=== PATIENT | male | born 1960 | race Caucasian/White ===

== ENCOUNTER 2020-06-13 10:00 | Day surgery (SDC) | payer MEDICARE, MEDICAID, SELFPAY ==
[2020-06-08 11:30] VITALS: BMI 29.7
--- NOTE | 2020-06-09 08:32 | HO.ANESPROP2 ---
Documented by User: Radha Monteiro 06/09/20 08:33 HPI - Anesthesia Eval Consult details Narrative: 59yo M for EGD PMFSH Past Medical History Medical History Anxiety Asthma Barretts esophagus Depression Environmental allergies GERD (gastroesophageal reflux disease) Post traumatic stress disorder (PTSD) Seasonal allergies Surgical History Surgical History Hx of colonoscopy Hx of esophagogastroduodenoscopy Hx of tonsillectomy Social History Social History Smoking Status: Former smoker Smoking Quit Date: 2014 Advance Directives: No Advance Directives Information Provided: No Advance Directives on File: No Meds Allergies Allergy/AdvReac Type Severity Reaction Status Date / Time nut - unspecified [NUTS] Allergy Unknown WHEEZES Verified 06/13/20 11:37 DAIRY PRODUCTS Allergy Unknown WHEEZES Uncoded 06/13/20 11:37 SEASONAL ALLERGIES Allergy Unknown DIFFICULTY Uncoded 05/26/20 14:42 BREATHING Home Medications Medication Instructions Recorded Confirmed Type escitalopram oxalate 1 tab PO DAILY 06/08/20 06/08/20 History fluticasone propion-salmeterol 1 inh INHALATION BID 06/08/20 06/10/20 History [Advair Diskus] lorazepam 1 tab PO DAILY PRN 06/08/20 06/08/20 History omeprazole 1 cap PO QAM 06/08/20 06/08/20 History oxcarbazepine PO 06/08/20 History risperidone 2 tab PO BEDTIME 06/08/20 06/08/20 History zolpidem 1 tab PO BEDTIME PRN 06/08/20 06/08/20 History escitalopram oxalate 10 mg PO DAILY 06/10/20 06/10/20 History Exam Exam Date and Time: June 09, 2020 0832 Height,Weight and Vital Signs: Height 6 ft 2.5 in Weight 106.594 kg Assessment and Plan Assessment Anesthesia Assessment: Chart Reviewed Documented by User: Judith Galvan 06/13/20 11:56 PMFSH Past Medical History Medical History Anxiety Asthma Barretts esophagus Depression Environmental allergies GERD (gastroesophageal reflux disease) Post traumatic stress disorder (PTSD) Seasonal allergies Surgical History Surgical History Hx of colonoscopy Hx of esophagogastroduodenoscopy Hx of tonsillectomy Social History Social History Smoking Status: Former smoker Smoking Quit Date: 2014 Advance Directives: No Advance Directives Information Provided: No Advance Directives on File: No Meds Allergies Allergy/AdvReac Type Severity Reaction Status Date / Time nut - unspecified [NUTS] Allergy Unknown WHEEZES Verified 06/13/20 11:37 DAIRY PRODUCTS Allergy Unknown WHEEZES Uncoded 06/13/20 11:37 SEASONAL ALLERGIES Allergy Unknown DIFFICULTY Uncoded 05/26/20 14:42 BREATHING Home Medications Medication Instructions Recorded Confirmed Type escitalopram oxalate 1 tab PO DAILY 06/08/20 06/08/20 History fluticasone propion-salmeterol 1 inh INHALATION BID 06/08/20 06/10/20 History [Advair Diskus] lorazepam 1 tab PO DAILY PRN 06/08/20 06/08/20 History omeprazole 1 cap PO QAM 06/08/20 06/08/20 History oxcarbazepine PO 06/08/20 History risperidone 2 tab PO BEDTIME 06/08/20 06/08/20 History zolpidem 1 tab PO BEDTIME PRN 06/08/20 06/08/20 History escitalopram oxalate 10 mg PO DAILY 06/10/20 06/10/20 History Exam Airway Mallampati Class: II TM Dist: >3cm Neck ROM: Full Heart: RrR Lungs: wheezes BL Other: up draft ordered Assessment and Plan Assessment Anesthesia Assessment: Anesthesia Plan Discussed, Consent Obtained and Chart Reviewed Final Anesthetic Review NPO: Yes ASA Class: III Final Preanesthetic Review: No Changes in Pt Med Stat, Meds & Allergies Reviewed and Consent Obtained/Reviewed Patient Risk: Intermediate Procedure Risk: Low Anesthetic Plan Anesthetic Plan: MAC: Disposition: Standard PACU
[2020-06-13 11:47] VITALS: BP 153/98; PULSE 79; RESP 16; TEMP 36.8; O2SAT 99
[2020-06-13] MEDS: Lactated Ringers 1,000 ML 100 ML IVCONT (11:53)
[2020-06-13] MEDS: Albuterol Sulfate (0.083%) 2.5 MG/3 ML VIAL.NEB INHALE (12:08)
[2020-06-13 12:51] VITALS: BP 119/70; PULSE 75; RESP 16; TEMP 36.4; O2SAT 100
[2020-06-13 12:56] VITALS: BP 123/68; PULSE 70; RESP 14; O2SAT 100
[2020-06-13 13:01] VITALS: BP 129/72; PULSE 66; RESP 16; O2SAT 100
[2020-06-13 13:06] VITALS: BP 137/77; PULSE 63; RESP 16; O2SAT 100
--- NOTE | 2020-06-13 13:20 | OP_ITS ---
SURGEON: Cristino Quintero MD INDICATIONS: The patient presents for evaluation of gastroesophageal reflux and Jacob's esophagus. Full consent has been obtained from him for this, including risks of bleeding and perforation. PREOPERATIVE DIAGNOSIS: POSTOPERATIVE DIAGNOSIS: PROCEDURE PERFORMED: Esophagogastroduodenoscopy with biopsies. ESTIMATED BLOOD LOSS: COMPLICATIONS: ANESTHESIA: Monitored anesthesia care. ASSISTANTS: SPECIMENS: PREOPERATIVE DIAGNOSES: Gastroesophageal reflux and Jacob's esophagus. POSTOPERATIVE DIAGNOSES: Gastroesophageal reflux and Jacob's esophagus, esophagitis, hiatal hernia. DESCRIPTION OF PROCEDURE: The patient was placed in the left lateral decubitus position. The Olympus video gastroscope was passed in the posterior oropharynx and upper esophagus under direct vision. The scope was passed slowly to the distal esophagus. The gastroesophageal junction appeared at 35 cm. Extending from this to approximately 29 cm, was what appeared to be a circumferential segment of Jacob's mucosa. There was some esophagitis just above the EG junction at 35 cm and at the squamocolumnar junction at 29 cm. There was no mass nor ulceration. There was no stricture. The scope was entered into the stomach. There was a moderate to large hiatal hernia with the diaphragmatic indentation seen at approximately 40 cm. The hiatal hernia mucosa appeared normal. The scope was advanced to pylorus and duodenum cannulated the descending portion. The duodenum including the bulb appeared normal without mass or ulceration. The scope was withdrawn back in the stomach. The gastric antrum and body appeared normal with good peristalsis. The scope was retroflexed visualizing the proximal stomach carefully, which appeared normal, without any sign of mass or ulceration. The scope was straightened and withdrawn back into the esophagus. Multiple biopsies were obtained just above the EG junction at 35 cm, at 33 cm, at 31 cm, and at 29 cm. Proximal to 29 cm, the esophageal mucosa appeared normal. The scope was then withdrawn from the patient. He tolerated the procedure well and was returned to recovery area in stable condition. IMPRESSION: 1. Erosive esophagitis. 2. Large hiatal hernia. 3. Jacob's esophagus. PLAN: The results of the biopsy will be checked. Assuming there is no dysplasia, I would recommend a repeat upper endoscopy within 3 years. He does have a prescription for omeprazole at home, but has not been using it because he reports that he does not have any particular symptoms of reflux. However, I did give him instructions to use it daily even if he is not having symptoms of reflux given today's endoscopic findings. He is due for a colonoscopy in 1 year. At that point, we may want to repeat his upper endoscopy as well to reassess the esophagitis. He was advised not to use any aspirin and NSAIDs for 1 week. MD KYLE Fall/WERNER / [id number]
--- NOTE | 2020-06-13 13:51 | HO.POSTANES ---
Post Anesthesia Evaluation Post Anesthesia Evaluation Vital Signs: Vital Signs Temp Pulse Resp BP Pulse Ox 06/13/20 13:06 63 16 137/77 100 06/13/20 13:01 66 16 129/72 100 06/13/20 12:56 70 14 123/68 100 06/13/20 12:51 97.6 F 75 16 119/70 100 06/13/20 11:47 98.3 F 79 16 153/98 H 99 Anesthesia: Monitored Mental Status: Awake Pain Control: Satisfactory Nausea/Vomiting: None Hydration: Adequate Anesthesia-Related Issues: No Anes. Related Issues
== END 2020-06-13 14:00 | disposition home or self-care (01) ==
PROVIDERS: PCP Physician Assistant Medical; Visit Provider Internal Medicine
PROC: 0DJ08ZZ Inspection of Upper Intestinal Tract, Via Natural or Artificial Opening Endoscopic (ICD-10-PCS; CPT 43235; principal; 2020-06-13 12:10)
DX: K22.70 Barrett's esophagus without dysplasia (principal); K21.00 Gastro-esophageal reflux disease with esophagitis, without bleeding; K44.9 Diaphragmatic hernia without obstruction or gangrene; J45.909 Unspecified asthma, uncomplicated; F43.10 Post-traumatic stress disorder, unspecified; Z87.891 Personal history of nicotine dependence; Z79.51 Long term (current) use of inhaled steroids; Z79.899 Other long term (current) drug therapy
CPT/HCPCS: 43239; 88305; 94640

== ENCOUNTER 2020-07-18 12:56 | Outpatient (REF) | payer MEDICARE, MEDICAID, SELFPAY ==
[2020-07-18 14:48] LABS: MANUAL DIFF FLAG NO
[2020-07-18 14:57] LABS: Basophils Absolute Auto 0.1 X10*3/uL (0.0-0.2); Basophils Percent Auto 0.8 % (0-2); Eosinophils Absolute Auto 0.3 X10*3/uL (0.0-0.4); Eosinophils Percent Auto 4.3 % (0-4); Hematocrit 44.4 % (42-52); Hemoglobin 15.5 g/dl (14.0-18.0); Imm Gran Abs Auto 0.02 X10*3/uL (0.00-0.03); Imm Gran Pct Auto 0.3 % (0.0-0.4); Lymphocytes Absolute Auto 1.6 X10*3/uL (1.2-4.9); Lymphocytes Percent Auto 24.8 % (20-40); Mean Corpuscular HGB Conc 34.9 g/dl (31.0-36.0); Mean Corpuscular Volume 91.5 fL (80-98); Mean Platelet Volume 9.8 fL (9.4-12.4); Monocytes Absolute Auto 0.6 X10*3/uL (0.1-1.2); Monocytes Percent Auto 8.8 % (2-11); Platelet Count 275 X10*3/uL (160-400); Red Blood Count 4.85 X10*6/uL (4.60-5.80); Red Cell Distribution Width 12.6 % (11.0-16.0); White Blood Count 6.6 X10*3/uL (4.8-10.8)
[2020-07-18 15:23] LABS: Alanine Aminotransferase 44 U/L (0-40); Albumin Level 4.3 g/dL (3.5-5.0); Alkaline Phosphatase 57 U/L (39-117); Anion Gap 11 (12-20); Aspartate Amino Transferase 31 U/L (5-37); Bilirubin Total 1.7 mg/dL (0.0-1.0); Blood Urea Nitrogen 23 mg/dL (9-16); Calcium 8.9 mg/dL (8.4-10.2); Carbon Dioxide 28 mmol/L (22-29); Chloride 102 mmol/L (96-108); Estimated Glomerular Filt Rate > 60; Glucose Random 101 mg/dL (60-115); Potassium 4.3 mmol/l (3.3-5.1); Sodium 137 mmol/L (135-145); Total Protein 6.4 g/dL (6.5-8.0)
[2020-07-18 15:24] LABS: Ethanol < 10 mg/dL
[2020-07-18 15:25] LABS: Cannabinoid Screen Urine POSITIVE (Not Detect)
[2020-07-18 15:26] LABS: Amphetamine Screen Urine Not Detected (Not Detect); Barbiturates, Urine Not Detected (Not Detect); Cocaine Screen Urine Not Detected (Not Detect); Opiate Screen Urine Not Detected (Not Detect); Phencyclidine Screen Urine Not Detected (Not Detect)
[2020-07-21 13:06] LABS: Lorazepam GCMS Urine NEGATIVE; Nordiazepam, GCMS Urine NEGATIVE; Oxazepam, GCMS Urine NEGATIVE
[2020-07-21 13:07] LABS: Alphahydroxytriazolam, GCMS Ur NEGATIVE; Alprazolam, GCMS Urine NEGATIVE
[2020-07-21 13:08] LABS: Alphahydroxymidazolam,GCMS Ur NEGATIVE; Aminoclonazepam, GCMS Urine NEGATIVE; Temazepam, GCMS Urine NEGATIVE
[2020-07-21 13:10] LABS: Flurazepam Metabolite,GCMS Ur NEGATIVE
[2020-07-23 13:35] LABS: Oxycodone Random Urine NEGATIVE
[2020-07-23 13:36] LABS: Noroxycodone Random Urine NEGATIVE; Oxymorphone Random Urine NEGATIVE
[2020-07-25 19:09] LABS: EDDP (Methadone Metabolite) negative; Methadone, Urine MS negative
== END 2020-07-18 12:57 | disposition home or self-care (01) ==
LOC: HO.LAB 12:56
PROVIDERS: Visit Provider Internal Medicine
DX: T50.901A Poisoning by unspecified drugs, medicaments and biological substances, accidental (unintentional), initial encounter (principal)
CPT/HCPCS: 36415; 80053; 80307; 80320; 80346; 80358; 80365; 85025

== ENCOUNTER 2020-11-28 10:46 | Emergency (ER) | payer MEDICARE, MEDICAID, SELFPAY ==
[2020-11-28 11:12] VITALS: BMI 29.9
--- NOTE | 2020-11-28 11:36 | PC.NURSE ---
rn entered tx rm approx. 1125 pt in bathroom rn re-entered tx rm, room empty at 1135
--- NOTE | 2020-12-01 08:14 | ED.EYEPROB ---
HPI - Eye Problem General Chief complaint: Eye Problems Stated complaint: eye and eyebrow inj Time Seen by Provider: 11/28/20 10:59 Source: patient Mode of arrival: ambulatory Limitations: no limitations History of Present Illness MD chief complaint: eye pain and eye redness Onset (ago): day(s) (1) Onset description: gradual Duration: constant Location: right eye Eye Symptoms: redness and discharge Place: home Mechanism: other (States was laying down watching videos on cellphone and fell asleep and as he dozed off he dropped his cellphone hitting him on the left eyebrow line. In the morning noticed a small groove above the eyebrow and felt like eye was irritated clean with tissue and since has gradually become red. Rashel) Severity: mild Severity scale (1-10): 1 If Pain, Quality: aching Associated symptoms: none Treatments Prior to Arrival: none Related Data Home Medications Medication Instructions Recorded Confirmed escitalopram oxalate 1 tab PO DAILY 06/08/20 06/08/20 fluticasone propion-salmeterol 1 inh INHALATION BID 06/08/20 06/10/20 [Advair Diskus] lorazepam 1 tab PO DAILY PRN 06/08/20 06/08/20 omeprazole 1 cap PO QAM 06/08/20 06/08/20 oxcarbazepine PO 06/08/20 risperidone 2 tab PO BEDTIME 06/08/20 06/08/20 zolpidem 1 tab PO BEDTIME PRN 06/08/20 06/08/20 escitalopram oxalate 10 mg PO DAILY 06/10/20 06/10/20 Allergies Allergy/AdvReac Type Severity Reaction Status Date / Time nut - unspecified [NUTS] Allergy Unknown WHEEZES Verified 06/13/20 11:37 DAIRY PRODUCTS Allergy Unknown WHEEZES Uncoded 06/13/20 11:37 SEASONAL ALLERGIES Allergy Unknown DIFFICULTY Uncoded 05/26/20 14:42 BREATHING Review of Systems Review of Systems: Constitutional: No Weight loss, No Fever, No Chills, No Night Sweats, No Fatigue, No Malaise ENT/Mouth: No Hearing loss, No Ear Pain, No Nasal Congestion, No Sinus Pain, No Hoarseness, No sore throat, No Rhinorrhea, No Swallowing Difficulty Eyes: No Eye Pain, No Swelling, + Redness, No Foreign Body, No Discharge, No Vision Changes Cardiovascular: No Chest Pain, No SOB, No Dyspnea on Exertion, No Orthopnea, No Edema, No Palpitations Respiratory: No Cough, No Sputum, No Wheezing, No Smoke Exposure, No Dyspnea Gastrointestinal: Negative Genitourinary: Negative Musculoskeletal: No joint pain, No Myalgias, No Joint Swelling Skin: No Skin Lesions, No rash Neuro: No Weakness, No Numbness, No Paresthesias, No Loss of Consciousness, No Dizziness, No Headache Psych: Negative Heme/Lymph: Negative Endocrine: No Polyuria, No Polydipsia, No Temperature Intolerance Yes all other systems are reviewed and are negative [facility] Past Medical History Medical History Anxiety Asthma Barretts esophagus Depression Environmental allergies GERD (gastroesophageal reflux disease) Post traumatic stress disorder (PTSD) Seasonal allergies Surgical History Hx of colonoscopy Hx of esophagogastroduodenoscopy Hx of tonsillectomy Social History Social History Smoking Status: Former smoker Smoked in Last 30 Days: No Advance Directives: No Advance Directives Information Provided: No Physical Exam Vital Signs: Vital Signs: Body Mass Index 29.9 Refused vitals total time he was here for his eye and did not want anything stronger Const: General: cooperative Orientation/consciousness: patient oriented x3 Eyes: Visual Mcadams: normal visual mcadams by confrontation Alignment and Position: alignment normal Periorbital: periorbital findings normal Eyelids: Yes eyelids normal Conjunctivae: conjunctival abnormal (Redness consistent with subconjunctival hemorrhage) right Corneas: corneas normal Pupils: Equal, round and reactive pupils present EOM: EOMs intact bilaterally Neck: Neck: Yes normal visual inspection Resp: Auscultation: clear to auscultation bilaterally Cardio: Rhythm: regular rhythm Heart sounds: S1 normal heart sound present and S2 normal heart sound present Neuro: General: patient oriented x3 Cranial nerves: Yes Equal, round and reactive pupils present Psych: Appearance: grossly normal Course Reevaluation(s) Reevaluation #1: After my initial examination plan to stain the eye with fluorescein and will abrasion/foreign body as well as check eye pressures and visual acuity. As soon as I left the room to grab eye exam supplies patient apparently eloped. Discharge Plan Discharge Clinical Impression: Eye redness Patient Disposition: Elopement Prescriptions: No Action fluticasone propion-salmeterol [Advair Diskus] 250-50 mcg/dose blister with device 1 inh inhalation BID RF: 0 oxcarbazepine 150 mg tablet PO RF: 0 risperidone 3 mg tablet 2 tab PO BEDTIME RF: 0 lorazepam 0.5 mg tablet 1 tab PO DAILY PRN (Reason: Anxiety) RF: 0 omeprazole 20 mg capsule,delayed release(DR/EC) 1 cap PO QAM RF: 0 zolpidem 10 mg tablet 1 tab PO BEDTIME PRN (Reason: Insomnia) RF: 0 escitalopram oxalate 20 mg tablet 1 tab PO DAILY RF: 0 escitalopram oxalate 10 mg tablet 10 mg PO DAILY RF: 0 Discharge Date/Time: 11/28/20 11:35
== END 2020-11-28 11:35 | disposition left against medical advice (07) ==
LOC: HO.ED 11:09
PROVIDERS: Emergency Provider Emergency Medicine; PCP Physician Assistant Medical
DX: H57.12 Ocular pain, left eye (principal); Z79.899 Other long term (current) drug therapy; Z87.891 Personal history of nicotine dependence
CPT/HCPCS: 99283

== ENCOUNTER 2021-02-03 13:20 | Emergency (ER) | payer MEDICARE, MEDICAID, SELFPAY ==
--- NOTE | ~2021-02-03 | US_ITS ---
EXAMINATION: US VENOUS ULTRASOUND WITH DOPPLER LOWER EXTREMITY, RIGHT CLINICAL INFORMATION: Right leg pain. COMPARISON: None TECHNIQUE: Ultrasound of the deep veins is performed from the hip to the calf with compression sonography and color and pulse Doppler assessment. Spectral analysis with color-flow imaging is performed. FINDINGS: There is normal venous compression and respiratory variation and augmented flow. The visualized common femoral vein, superficial femoral vein, profunda femoral vein, popliteal vein, and the trifurcation region shows no evidence of deep venous thrombosis. There is no significant popliteal fossa cyst. Unremarkable soft tissues. If the patient's symptoms persist, followup ultrasound in 5 days 7 days might be of value to exclude proximal propagation from a non-visualized calf vein. US/US venous duplex LE RT IMPRESSION: No DVT demonstrated in the right lower extremity.
[2021-02-03 13:50] VITALS: BP 00/00; PULSE 103; RESP 18; TEMP 36.8; O2SAT 97; BMI 29.7
--- NOTE | 2021-02-03 14:47 | ED_ITS ---
HPI - Extremity Injury (Lower) General Chief Complaint: Extremity Injury, Lower Stated Complaint: leg pain Time Seen by Provider: 02/03/21 14:47 History of Present Illness HPI Narrative: Patient complains of posterior right thigh pain which began 3 days ago, it started when he woke up at night with a cramp in the back of his thigh, he does not recall any injury no fever no chills no numbness weakness or tingling Related Data Home Medications Medication Instructions Recorded Confirmed escitalopram oxalate 1 tab PO DAILY 06/08/20 06/08/20 fluticasone propion-salmeterol 1 inh INHALATION BID 06/08/20 06/10/20 [Advair Diskus] lorazepam 1 tab PO DAILY PRN 06/08/20 06/08/20 omeprazole 1 cap PO QAM 06/08/20 06/08/20 oxcarbazepine PO 06/08/20 risperidone 2 tab PO BEDTIME 06/08/20 06/08/20 zolpidem 1 tab PO BEDTIME PRN 06/08/20 06/08/20 escitalopram oxalate 10 mg PO DAILY 06/10/20 06/10/20 Allergies Allergy/AdvReac Type Severity Reaction Status Date / Time nut - unspecified [NUTS] Allergy Unknown WHEEZES Verified 02/03/21 13:50 DAIRY PRODUCTS Allergy Unknown WHEEZES Uncoded 06/13/20 11:37 SEASONAL ALLERGIES Allergy Unknown DIFFICULTY Uncoded 05/26/20 14:42 BREATHING Review of Systems Review of Systems: Positive for right posterior thigh pain negatives are no fe samir no chills no dizziness with no weakness no neck pain no back pain no chest pain no shortness of breath no palpitations no abdominal pain no vomiting no rash no swelling no numbness weakness or tingling Yes all other systems are reviewed and are negative PMFSH Past Medical History Source: nursing notes reviewed Medical History Anxiety Asthma Barretts esophagus Depression Environmental allergies GERD (gastroesophageal reflux disease) Post traumatic stress disorder (PTSD) Seasonal allergies Surgical History Hx of colonoscopy Hx of esophagogastroduodenoscopy Hx of tonsillectomy Physical Exam Vital Signs: Vital Signs: Last Vital Signs Temp 98.2 F 02/03/21 13:50 Pulse 103 H 02/03/21 13:50 Resp 18 02/03/21 13:50 BP 00/00 L 02/03/21 13:50 Pulse Ox 97 02/03/21 13:50 Body Mass Index 29.7 General appearance no acute distress Head is normocephalic atraumatic Neck is supple and nontender Chest is clear to auscultation bilateral, no respiratory distress Heart no murmur Abdomen soft nontender Extremities full range of motion x4 Right lower extremity has tenderness behind the knee and behind the thigh, there is full range of motion the skin is normal in color there is no redness warmth or wound and neurovascular intact distal Course Course Course Narrative: Patient with posterior thigh pain without injury is tested with ultrasound to rule out DVT and the ultrasound was normal no DVT, no sign of cellulitis on skin exam no joint swelling and is referred to follow with primary care doctor and return if worse Discharge Plan Discharge Clinical Impression: Muscle strain of right thigh Patient Disposition: Home, Self-Care Additional Instructions: Exam today did not show any sign of skin infection Ultrasound did not show any blood clot It is possible when her leg cramped that it may have strained the muscle No sign of any dangerous or serious condition now If needed follow with physical therapy Return any time for redness swelling and increased pain fever any worse condition or any concerns Prescriptions: No Action fluticasone propion-salmeterol [Advair Diskus] 250-50 mcg/dose blister with device 1 inh inhalation BID RF: 0 oxcarbazepine 150 mg tablet PO RF: 0 risperidone 3 mg tablet 2 tab PO BEDTIME RF: 0 lorazepam 0.5 mg tablet 1 tab PO DAILY PRN (Reason: Anxiety) RF: 0 omeprazole 20 mg capsule,delayed release(DR/EC) 1 cap PO QAM RF: 0 zolpidem 10 mg tablet 1 tab PO BEDTIME PRN (Reason: Insomnia) RF: 0 escitalopram oxalate 20 mg tablet 1 tab PO DAILY RF: 0 escitalopram oxalate 10 mg tablet 10 mg PO DAILY RF: 0 Referrals: Tanna Orellana MD [Physician] - 2 days (Right thigh muscle strain) Interventions: ED Discharge Assessment Last Done: 02/03/21 16:20 Discharge Date/Time: 02/03/21 16:20
== END 2021-02-03 16:20 | disposition home or self-care (01) ==
PROVIDERS: Emergency Provider Emergency Medicine; PCP Physician Assistant Medical
DX: M79.651 Pain in right thigh (principal); S76.911A Strain of unspecified muscles, fascia and tendons at thigh level, right thigh, initial encounter; X50.1XXA Overexertion from prolonged static or awkward postures, initial encounter; Y93.84 Activity, sleeping; Y92.032 Bedroom in apartment as the place of occurrence of the external cause; Y99.8 Other external cause status
CPT/HCPCS: 93971; 99283; 99284

== ENCOUNTER → 2021-02-17 10:28 | Outpatient (BNVA) | payer MEDICARE, MEDICAID, SELFPAY | PROVIDERS: Visit Provider Physician Assistant | DX: S76.311A Strain of muscle, fascia and tendon of the posterior muscle group at thigh level, right thigh, initial encounter (principal); S86.811A Strain of other muscle(s) and tendon(s) at lower leg level, right leg, initial encounter | CPT/HCPCS: 99202 ==

== ENCOUNTER → 2021-03-08 12:24 | Outpatient (BNVA) | payer MEDICARE, MEDICAID, SELFPAY | PROVIDERS: Visit Provider Orthopaedic Surgery | DX: S86.811D Strain of other muscle(s) and tendon(s) at lower leg level, right leg, subsequent encounter (principal) | CPT/HCPCS: 99212 ==

== ENCOUNTER → 2021-07-06 11:18 | Outpatient (BNVA) | payer MEDICARE, MEDICAID, SELFPAY | PROVIDERS: Visit Provider Urology | DX: N32.0 Bladder-neck obstruction (principal); N40.1 Benign prostatic hyperplasia with lower urinary tract symptoms; N13.8 Other obstructive and reflux uropathy; R35.1 Nocturia; R39.12 Poor urinary stream; J30.2 Other seasonal allergic rhinitis; Z91.09 Other allergy status, other than to drugs and biological substances | CPT/HCPCS: 99212 ==

== ENCOUNTER 2022-05-22 08:39 | Emergency (ER) | payer MEDICARE, MEDICAID, SELFPAY ==
[2022-05-22 08:50] VITALS: PULSE 98; RESP 18; TEMP 36.9; O2SAT 100; BMI 25.0
[2022-05-22 10:47] LABS: MANUAL DIFF FLAG NO
[2022-05-22 10:55] LABS: Basophils Absolute Auto 0.1 X10*3/uL (0.0-0.2); Basophils Percent Auto 0.9 % (0-2); Eosinophils Absolute Auto 0.2 X10*3/uL (0.0-0.4); Eosinophils Percent Auto 2.3 % (0-4); Hematocrit 48.5 % (42.0-52.0); Hemoglobin 17.3 g/dl (14.0-18.0); Imm Gran Abs Auto 0.02 X10*3/uL (0.00-0.03); Imm Gran Pct Auto 0.3 % (0.0-0.4); Lymphocytes Absolute Auto 1.2 X10*3/uL (1.2-4.9); Mean Corpuscular HGB Conc 35.7 g/dl (31.0-36.0); Mean Corpuscular Hemoglobin 32.1 pg (27.0-33.0); Mean Platelet Volume 9.5 fL (9.4-12.4); Monocytes Absolute Auto 0.6 X10*3/uL (0.1-1.2); Neutrophils Absolute Auto 4.5 x10*3/uL (2.0-8.3); Neutrophils Percent Auto 68.5 % (45-73); Platelet Count 277 X10*3/uL (160-400); Red Blood Count 5.39 X10*6/uL (4.60-5.80); Red Cell Distribution Width 12.7 % (11.0-16.0); White Blood Count 6.5 X10*3/uL (4.8-10.8)
[2022-05-22 11:05] LABS: Alanine Aminotransferase 40 U/L (0-40); Albumin Level 4.7 g/dL (3.5-5.0); Alkaline Phosphatase 67 U/L (39-117); Anion Gap 15 (12-20); Aspartate Amino Transferase 33 U/L (5-37); Bilirubin Direct 0.7 mg/dL (0.0-0.5); Bilirubin Total 2.1 mg/dL (0.0-1.0); Blood Urea Nitrogen 17 mg/dL (9-16); Calcium 9.9 mg/dL (8.4-10.2); Carbon Dioxide 29 mmol/L (22-29); Chloride 99 mmol/L (96-108); Creatinine Clr Calc Pharmacy 78.9; Estimated Glomerular Filt Rate > 60; Glucose Random 97 mg/dL (60-115); Potassium 4.2 mmol/L (3.3-5.1); Sodium 139 mmol/L (135-145); Total Protein 7.3 g/dL (6.5-8.0)
--- NOTE | 2022-05-22 17:20 | ED_ITS ---
HPI - General Adult General Chief complaint: Skin/Abscess/Foreign Body Stated complaint: itchiness in L leg/sore on R leg Time Seen by Provider: 05/22/22 10:01 History of Present Illness HPI narrative: Patient complains of itchy rash on his legs that have been there for many months as well as feeling mildly itchy in both shoulders for several days, he denies any other symptoms there has been no fever no chills no weight loss no fatigue no difficulty breathing or swallowing Related Data Home Medications Medication Instructions Recorded Confirmed escitalopram oxalate 20 mg tablet 1 tab PO DAILY 06/08/20 06/08/20 fluticasone 250 mcg-salmeterol 50 1 inh inhalation BID 06/08/20 06/10/20 mcg/dose blistr powdr for inhalation (Advair Diskus) lorazepam 0.5 mg tablet 1 tab PO DAILY PRN Anxiety 06/08/20 06/08/20 omeprazole 20 mg capsule,delayed 1 cap PO QAM 06/08/20 06/08/20 release oxcarbazepine 150 mg tablet PO 06/08/20 risperidone 3 mg tablet 2 tab PO BEDTIME 06/08/20 06/08/20 zolpidem 10 mg tablet 1 tab PO BEDTIME PRN Insomnia 06/08/20 06/08/20 escitalopram oxalate 10 mg tablet 10 mg PO DAILY 06/10/20 06/10/20 Previous Rx's Medication Instructions Recorded cetirizine 10 mg tablet 10 mg PO DAILY PRN Itch, rash #14 05/22/22 tabs prednisone 20 mg tablet 60 mg PO DAILY 3 days #9 tabs 05/22/22 Allergies Allergy/AdvReac Type Severity Reaction Status Date / Time nut - unspecified [NUTS] Allergy Unknown WHEEZES Verified 07/06/21 11:34 DAIRY PRODUCTS Allergy Unknown WHEEZES Uncoded 07/06/21 11:34 SEASONAL ALLERGIES Allergy Unknown DIFFICULTY Uncoded 07/06/21 11:34 BREATHING Review of Systems Review of Systems: Positive for HE Aline rash Negatives are no fever no chills no fainting no feeling faint no headache no neck pain no difficulty breathing or swallowing no chest pain no shortness of breath no abdominal pain no nausea vomiting or diarrhea no weight loss no fatigue Yes all other systems are reviewed and are negative PMFSH Past Medical History Source: nursing notes reviewed Medical History Anxiety Asthma Barretts esophagus Depression Environmental allergies GERD (gastroesophageal reflux disease) Post traumatic stress disorder (PTSD) Seasonal allergies Surgical History Hx of colonoscopy Hx of esophagogastroduodenoscopy Hx of tonsillectomy Social History Social History Alcohol intake: never Patient Tobacco Use Status: Never used Tobacco Advance Directives: No Current occupational status: retired Current occupation: rt hand Physical Exam ED Vital Signs: Vital Signs - 24 hr 05/22/22 08:50 Temperature 98.4 F Pulse Rate 98 Respiratory Rate 18 Pulse Oximetry 100 Oxygen Delivery Method Room Air BMI result Body Mass Index 25.0 General appearance no distress The eyes no redness or discharge The sinuses nontender The pharynx is clear no redness swelling or exudate no swelling of lips tongue or uvula no difficulty breathing or swallowing Neck is supple Chest clear to auscultation bilateral no respiratory distress Heart no murmur Extremities full range of motion x4 Skin on both legs there is a red patchy rash with no tenderness no warmth that has evidence of excoriation, no blistering no purpura no petechia Course Course Course Narrative: Labs were sent without any acute abnormality no evidence of renal failure kidney failure no evidence of liver failure and no evidence of diabetes and patient is prescribed a course of steroids and antihistamine and will follow with his doctor, he is comfortable and well-appearing and is discharged Medical Decision Making Lab Data Result diagrams: 05/22/22 10:41 05/22/22 10:41 Labs: Lab Results 05/22/22 05/22/22 Range/Units 10:41 10:41 WBC 6.5 (4.8-10.8) X10*3/uL RBC 5.39 (4.60-5.80) X10*6/uL Hgb 17.3 (14.0-18.0) g/dl Hct 48.5 (42.0-52.0) % MCV 90.0 (80.0-98.0) fL MCH 32.1 (27.0-33.0) pg MCHC 35.7 (31.0-36.0) g/dl RDW 12.7 (11.0-16.0) % Plt Count 277 (160-400) X10*3/uL MPV 9.5 (9.4-12.4) fL Immature Gran % (Auto) 0.3 (0.0-0.4) % Neut % (Auto) 68.5 (45-73) % Lymph % (Auto) 19.0 L (20-40) % [place] % (Auto) 9.0 (2-11) % Eos % (Auto) 2.3 (0-4) % Baso % (Auto) 0.9 (0-2) % Lymph # (Auto) 1.2 (1.2-4.9) X10*3/uL [place] # (Auto) 0.6 (0.1-1.2) X10*3/uL Eos # (Auto) 0.2 (0.0-0.4) X10*3/uL Baso # (Auto) 0.1 (0.0-0.2) X10*3/uL Abs Immat Gran (auto) 0.02 (0.00-0.03) X10*3/uL Absolute Neuts (auto) 4.5 (2.0-8.3) x10*3/uL Absolute Nucleated RBC 0.000 (0.0-0.012) X10*3/uL Nucleated RBC % (auto) 0.0 (0.0-0.2) /100WBC Sodium 139 (135-145) mmol/L Potassium 4.2 (3.3-5.1) mmol/L Chloride 99 (96-108) mmol/L Carbon Dioxide 29 (22-29) mmol/L Anion Gap 15 (12-20) BUN 17 H (9-16) mg/dL Creatinine 1.16 (0.5-1.4) mg/dL Estim Creat Clear Calc 78.9 Estimated GFR > 60 Random Glucose 97 (60-115) mg/dL Calcium 9.9 D (8.4-10.2) mg/dL Total Bilirubin 2.1 H (0.0-1.0) mg/dL Direct Bilirubin 0.7 H (0.0-0.5) mg/dL AST 33 (5-37) U/L ALT 40 (0-40) U/L Alkaline Phosphatase 67 (39-117) U/L Total Protein 7.3 (6.5-8.0) g/dL Albumin 4.7 (3.5-5.0) g/dL Discharge Plan Discharge Clinical Impression: Rash, Itch Patient Disposition: Home, Self-Care Additional Instructions: Which check blood tests because ear itchiness, there was no dangerous finding, but your bilirubin was very mildly elevated This is something you should follow with your primary care doctor who will probably recheck it in a few weeks or months To treat the symptoms of itch and possibly help with the rash we are doing steroids and cetirizine Follow closely with primary doctor and possible referral to a form designer Return any time if worse Prescriptions: New cetirizine 10 mg tablet 10 mg PO DAILY PRN (Reason: Itch, rash) Qty: 14 0RF prednisone 20 mg tablet 60 mg PO DAILY 3 Days Qty: 9 0RF No Action fluticasone propion-salmeterol [Advair Diskus] 250-50 mcg/dose blister with device 1 inh inhalation BID oxcarbazepine 150 mg tablet PO risperidone 3 mg tablet 2 tab PO BEDTIME lorazepam 0.5 mg tablet 1 tab PO DAILY PRN (Reason: Anxiety) omeprazole 20 mg capsule,delayed release(DR/EC) 1 cap PO QAM zolpidem 10 mg tablet 1 tab PO BEDTIME PRN (Reason: Insomnia) escitalopram oxalate 20 mg tablet 1 tab PO DAILY escitalopram oxalate 10 mg tablet 10 mg PO DAILY Interventions: ED Discharge Assessment Last Done: 05/22/22 11:39 Discharge Date/Time: 05/22/22 11:39
== END 2022-05-22 11:39 | disposition home or self-care (01) ==
PROVIDERS: Physician Assistant Medical; Emergency Provider Emergency Medicine; PCP Physician Assistant Medical
DX: R21 Rash and other nonspecific skin eruption (principal); L29.9 Pruritus, unspecified; Z79.899 Other long term (current) drug therapy
CPT/HCPCS: 36415; 80048; 80076; 85025; 99282; 99283

== ENCOUNTER 2022-08-22 11:40 | Emergency (ER) | payer MEDICARE, MEDICAID, SELFPAY ==
--- OUTSIDE RECORDS SUMMARY | 2022-08-22 15:47 | XMS_ITS | Continuity of Care Document ---
:1960 Author Organization [facility] Adult Address [address] [place] [address]- Care Team Providers Name Role Phone Javy Wagner Primary Care Physician Encounter [facility] [place] Date(s): 05/12/20 - 06/11/20 [facility] Adult [address] [place] [address]- [facility] Attending Physician: Garry Maya Admitting Physician: Garry Maya Referring Physician: AdmtrGarry Allergies, Adverse Reactions, Alerts Substance Reaction Severity Status NKA Active Medications Ambien 10 mg oral tablet 1 tablet = 10 mg, By Mouth, Daily at bedtime, PRN as needed for insomnia, 0 Refills, Maintenance, 12/30/19 11:57:00 EDT, Tablet Start Date: 12/30/19 Status: Ordered Problem List Condition Effective Dates Status Health Status Informant History of traumatic head Active injury(Confirmed) Insomnia(Confirmed) Active Social History Social History Type Response Smoking Status Former smoker, quit more lisbeth n 30 days ago; Stopped at age: 55; entered on: 12/30/19 Sex Male
--- OUTSIDE RECORDS SUMMARY | 2022-08-22 15:47 | XMS_ITS | Continuity of Care Document ---
:1960 Author Organization [facility] Adult Address Unavailable , Care Team Providers Name Role Phone Javy Wagner Primary Care Physician [place] [facility] [place]): 07/25/21 - 08/01/21 [facility] Adult Encounter Diagnosis Bronchitis (Discharge Diagnosis) - 07/25/21 Rib pain on left side (Discharge Diagnosis) - 07/25/21 Attending Physician: Javy Wagner Allergies, Adverse Reactions, Alerts Substance Reaction Severity Status NKA Active Immunizations Given and Recorded Vaccine Date Status Refusal Reason tetanus/diphtheria/pertussis, acel(Tdap) 01/10/15 Recorde d Influenza Virus Vaccine (oldterm) 08/24/06 Recorded Medications Advair Diskus 100 mcg-50 mcg inhalation powder 1, inhalation, Inhalation, 2 times a day, rinse mouth and throat after use, # 1 each, Refills 2, Tot. Refills 2, Maintenance, 07/31/21 11:39:00 EST, Powder, Route to Pharmacy Electronically, [id number], [facility],... Start Date: 07/31/21 Status: Ordered Problem List Condition Effective Dates Status Health Status Informant History of traumatic head Active injury(Confirmed) Insomnia(Confirmed) Active Diagnosis Diagnosis Type Effective Dates Health Clinical Infor mant Status Service Bronchitis Discharge 07/25/21 Diagnosis Rib pain on left Discharge 07/25/21 side Diagnosis Vital Signs Most recent to oldest [Reference Range]: 1 Height 188 cm (07/25/21 10:37 AM) Social History Social History Type Response Smoking Status Former smoker, quit more lisbeth n 30 days ago; Stopped at age: 55; entered on: 12/30/19 Sex Male
--- OUTSIDE RECORDS SUMMARY | 2022-08-22 15:47 | XMS_ITS | Continuity of Care Document ---
:1960 Author Organization [facility] Adult Address [address] [place] [address]- Care Team Providers Name Role Phone Javy Wagner Primary Care Physician [place] [facility] [place] - 06/11/20 [facility] Adult [address] [place] [address]- [facility] Attending Physician: Javy Wagner Allergies, Adverse Reactions, [...]
--- OUTSIDE RECORDS SUMMARY | 2022-08-22 15:47 | XMS_ITS | Continuity of Care Document ---
:1960 Author Organization [facility] Address [address] [place] [address]- Care Team Providers Name Role Phone Javy Wagner Primary Care Physician [id number] Date(s): 01/20/20 - 05/19/20 [facility] [address] [place] [address]- [facility] Attending Physician: Chau Dickson MD Admitting Physician: Chau Dickson MD Referring Physician: Javy Wagner Allergies, Adverse Reactions, Alerts [...]
--- OUTSIDE RECORDS SUMMARY | 2022-08-22 15:47 | XMS_ITS | Continuity of Care Document ---
:1960 Author Organization [facility] Address [address] [place] [address]- Care Team Providers Name Role Phone Javy Wagner Primary Care Physician [place] [facility] [place](s): 04/22/22 - 06/07/[address] [address] Attending Physician: Javy Wagner Admitting Physician: Javy Wagner Referring Physician: Noé Bustos MD Allergies, Adverse Reactions, Alerts No Known Allergies Immunizations Given and Recorded Vaccine Date Status Refusal Reason tetanus/diphtheria/pertussis, acel(Tdap) 01/10/15 Recorde d Influenza Virus Vaccine (oldterm) 08/24/06 Recorded Medications Advair Diskus 250 mcg-50 mcg inhalation powder 1, puffs, Inhalation, 2 times a day, Brand name Advair only, # 28 each, Refills 1, Tot. Refills 1, Maintenance, 04/09/22 15:56:00 EDT, Powder, Route to Pharmacy Electronically, [id number], [facility], 188, cm, 07/10... Start Date: 04/09/22 Status: Ordered Problem List Condition Confirmation Course Effective Dates Status Health Stat us Informant History of Confirmed Active traumatic head injury Insomnia Confirmed Active Social History Social History Type Response Smoking Status Former smoker, quit more lisbeth n 30 days ago; Stopped at age: 55; entered on: 12/30/19 Sex Male Patient Care team information PersonnelName: Javy Wagner Address: Address: [address] [place], [place] [address]
--- OUTSIDE RECORDS SUMMARY | 2022-08-22 15:47 | XMS_ITS | Continuity of Care Document ---
:1960 Author Organization [facility] Adult Address Unavailable , Care Team Providers Name Role Phone Javy Wagner Primary Care Physician [place] [facility] [place] [facility] [place] 07/25/21 - 08/24/21 [facility] Adult Allergies, Adverse Reactions, Alerts Substance Reaction Severity Status NKA Active Immunizations Given and Recorded Vaccine Date Status Refusal Reason tetanus/diphtheria/pertussis, acel(Tdap) 01/10/15 Recorde d Influenza Virus Vaccine (oldterm) 08/24/06 Recorded Medications Advair Diskus 250 mcg-50 mcg inhalation powder 1, puffs, Inhalation, 2 times a day, Brand name Advair only, # 28 each, Refills 1, Tot. Refills 1, Maintenance, 08/08/21 16:45:00 EST, Powder, Route to Pharmacy Electronically, [id number], [facility], 188, cm, 07/10... Start Date: 08/08/21 Status: Ordered Problem List Condition Effective Dates Status Health Status Informant History of traumatic head Active injury(Confirmed) Insomnia(Confirmed) Active Social History Social History Type Response Smoking Status Former smoker, quit more lisbeth n 30 days ago; Stopped at age: 55; entered on: 12/30/19 Sex Male
--- OUTSIDE RECORDS SUMMARY | 2022-08-22 15:47 | XMS_ITS | Continuity of Care Document ---
:1960 Author Organization [facility] Adult Address [address] [place] [address]- Care Team Providers Name Role Phone Javy Wagner Primary Care Physician Encounter [place] Date(s): 06/20/22 - 07/20/22 [facility] Adult [address] [place] [address]- Allergies, Adverse Reactions, Alerts No Known Allergies Immunizations Given and Recorded Vaccine Date Status Refusal Reason tetanus/diphtheria/pertussis, acel(Tdap) 01/10/15 Recorde d Influenza Virus Vaccine (oldterm) 08/24/06 Recorded Medications Advair Diskus 250 mcg-50 mcg inhalation powder 1, puffs, Inhalation, 2 times a day, Brand name Advair only, # 28 each, Refills 1, Tot. Refills 1, Maintenance, 04/09/22 15:56:00 EDT, Powder, Route to Pharmacy Electronically, [id number], [facility], 188, cm, 07/10... Start Date: 04/09/22 Status: OrderedAzithromycin 5 Day Dose Pack 250 mg oral tablet 1 pack/packet, By Mouth, Once, # 6 tablet, 0 Refills, Soft Stop, 06/12/22 17:27:00 EDT, Tablet, [facility], Partial fill upon patient request if the prescription is for a schedule II opioid drug., 188, cm, 07/25/21 10:37:00 EST, Height Start Date: 06/12/22 Status: OrderedMedrol Dosepak 4 mg oral tablet 1 pack/packet, By Mouth, Once, # 21 tablet, 0 Refills, Soft Stop, 06/12/22 17:27:00 EDT, Tablet, [facility], Partial fill upon patient request if the prescription is for a schedule II opioiddrug., 188, cm, 07/25/21 10:37:00 EST, Height Start Date: 06/12/22 Status: OrderedProAir HFA 90 mcg/inh inhalation aerosol with adapter 1, puffs, Inhalation, Every 6 hours, PRN, # 8.5 Gm, Refills 0, Tot. Refills 0, Maintenance, 06/12/2217:28:00 EDT, Aerosol, Route to Pharmacy Electronically, [id number], [facility], 188, cm, 07/25/21 10:37:00 EST,... Start Date: 06/12/22 Status: Ordered Problem List Condition Confirmation Course Effective Dates Status Health Stat Informant History of Confirmed Active traumatic head injury Insomnia Confirmed Active Social History Social History Type Response Smoking Status Former smoker, quit more lisbeth n 30 days ago; Stopped at age: 55; entered on: 12/30/19 Sex Male Patient Care team information Care Team PersonnelName: Javy Wagner Position: [facility] Associate Professional Member Role: PCP Address: Address: [address] [facility] [place] [address]- Care Team Related PersonsName: COLTON CLEVELAND Address: home [address] [place] [address] Name: KINGS ARMENDARIZ Address: home [address] [place] [address]
--- OUTSIDE RECORDS SUMMARY | 2022-08-22 15:47 | XMS_ITS | Continuity of Care Document ---
:1960 Author Organization [facility] Adult Address [address] [place] [address]- Care Team Providers Name Role Phone Javy Wagner Primary Care Physician [place] [facility] [place] 06/13[place]22 - 07/13/22 [facility] Adult [address] [place] [address]- Allergies, Adverse Reactions, Alerts No Known Allergies Immunizations Given and Recorded Vaccine Date Status Refusal Reason tetanus/diphtheria/pertussis, acel(Tdap) 01/10/15 Recorde d Influenza Virus Vaccine (oldterm) 08/24/06 Recorded Medications Advair Diskus 250 mcg-50 mcg inhalation powder 1, puffs, Inhalation, 2 times a day, Brand name Advair only, # 28 each, Refills 1, Tot. Refills 1, Maintenance, 04/09/22 15:56:00 EDT, Powder, Route to Pharmacy Electronically, [id number], [facility], 188, cm, 07/10... Start Date: 04/09/22 Status: OrderedAzithromycin 5 Day Dose Pack 250 mg oral tablet 1 pack/packet, By Mouth, Once, # 6 tablet, 0 Refills, Soft Stop, 06/12/22 17:27:00 EDT, Tablet, [facility], Partial fill upon patient request if the prescription is for a schedule II opioid drug., 188, cm, 07/25/21 10:37:00 EST, Height Start Date: 06/12/22 Status: OrderedMedrol Dosepak 4 mg oral tablet 1 pack/packet, By Mouth, Once, # 21 tablet, 0 Refills, Soft Stop, 06/12/22 17:27:00 EDT, Tablet, [facility], Partial fill upon patient request if the prescription is for a schedule II opioiddrug., 188, cm, 07/25/21 10:37:00 EST, Height Start Date: 06/12/22 Status: OrderedProAir HFA 90 mcg/inh inhalation aerosol with adapter 1, puffs, Inhalation, Every 6 hours, PRN, # 8.5 Gm, Refills 0, Tot. Refills 0, Maintenance, 06/12/2217:28:00 EDT, Aerosol, Route to Pharmacy Electronically, [id number], [facility], 188, cm, 07/25/21 10:37:00 EST,... [...] information PersonnelName: Javy Wagner Address: Address: [address] [place], [place] [address]
--- OUTSIDE RECORDS SUMMARY | 2022-08-22 15:47 | XMS_ITS | Continuity of Care Document ---
:1960 Author Organization [facility] Address [address] [place] [address]- Care Team Providers Name Role Phone Javy Wagner Primary Care Physician [place] [facility] [place]/22 - 06/07/[address] [address] Attending Physician: Javy Wagner Admitting Physician: Javy [...] 15:56:00 EDT, Powder, Route to Pharmacy Electronically, [id number], [facility], 188, cm, 07/10... Start [...] information PersonnelName: Javy Wagner Address: Address: [address] [place], [place] [address]
--- OUTSIDE RECORDS SUMMARY | 2022-08-22 15:47 | XMS_ITS | Continuity of Care Document ---
:1960 Author Organization [facility] Adult Address Unavailable , Care Team Providers Name Role Phone Javy aWgner Primary Care Physician Encounter [facility] [place] Date(s): 07/25/21 - 08/24/21 [facility] Adult Attending Physician: Garry Maya Admitting Physician: Garry Maya Referring Physician: trGarry Allergies, Adverse Reactions, Alerts Substance Reaction Severity [...] 16:45:00 EST, Powder, Route to Pharmacy Electronically, [id number], [facility], 188, cm, 07/10... Start Date: 08/08/21 Status: Ordered Problem List Condition Effective Dates Status Health Status Informant History of traumatic head Active injury(Confirmed) Insomnia(Confirmed) Active Social History Social History Type Response Smoking Status Former smoker, quit more lisbeth n 30 days ago; Stopped at age: 55; entered on: 12/30/19 Sex Male
--- OUTSIDE RECORDS SUMMARY | 2022-08-22 15:47 | XMS_ITS | Continuity of Care Document ---
:1960 Author Organization [facility] Adult Address [address] [place] [address]- Care Team Providers Name Role Phone Javy Wagner Primary Care Physician Encounter [facility] [place] Date(s): 03/17/20 - 04/16/20 [facility] Adult [address] [place] [address]- [facility] Allergies, Adverse Reactions, Alerts Substance Reaction Severity [...]
--- OUTSIDE RECORDS SUMMARY | 2022-08-22 15:47 | XMS_ITS | Continuity of Care Document ---
:1960 Author Organization [facility] Adult Address Unavailable , Care Team Providers Name Role Phone Javy Wagner Primary Care Physician En[place] [facility] [place] Date(s): 08/20/21 - 09/19/21 [facility] Adult Allergies, Adverse Reactions, Alerts Substance Reaction [...] 16:45:00 EST, Powder, Route to Pharmacy Electronically, [id number], [facility], 188, cm, 07/10... Start Date: 08/08/21 Status: Ordered Problem List Condition Effective Dates Status Health Status Informant History of traumatic head Active injury(Confirmed) Insomnia(Confirmed) Active Social History Social History Type Response Smoking Status Former smoker, quit more lisbeth n 30 days ago; Stopped at age: 55; entered on: 12/30/19 Sex Male
--- OUTSIDE RECORDS SUMMARY | 2022-08-22 15:47 | XMS_ITS | Continuity of Care Document ---
:1960 Author Organization [facility] Address [address] [place] [address]- Care Team Providers Name Role Phone aJvy Wagner Primary Care Physician [place] [facility] [place]08/[place] - 06/16/[address] [address] Attending Physician: Javy Wagner Admitting Physician: Javy [...] 15:56:00 EDT, Powder, Route to Pharmacy Electronically, [id number], [facility], 188, cm, 07/10... Start Date: 04/09/22 Status: OrderedAzithromycin 5 Day Dose Pack 250 mg oral tablet 1 pack/packet, By Mouth, Once, # 6 tablet, 0 Refills, Soft Stop, 06/12/22 17:27:00 EDT, Tablet, [facility], Partial fill upon patient request if the prescription is for a schedule II opioid drug., 188, cm, 07/25/21 10:37:00 EST, Height Start Date: 06/12/22 Status: OrderedguaiFENesin 600 mg oral tablet, extended release 1 tablet = 600 mg, By Mouth, Every 12 hours, for 10 days, # 20 tablet, 0 Refills, Acute 06/22/22 17:28:00 EDT, 06/12/22 17:28:00 EDT, ER Tablet, [facility], Partial fill upon patient requestif the prescription is for a schedule II opioid d... Start Date: 06/12/22 Stop Date: 06/22/22 Status: OrderedMedrol Dosepak 4 mg oral tablet 1 pack/packet, By Mouth, Once, # 21 tablet, 0 Refills, Soft Stop, 06/12/22 17:27:00 EDT, Tablet, [facility], Partial fill upon patient request if the prescription is for a schedule II opioiddrug., 188, cm, 07/25/21 10:37:00 EST, Height Start Date: 06/12/22 Status: OrderedProAir HFA 90 mcg/inh inhalation aerosol with adapter 1, puffs, Inhalation, Every 6 hours, PRN, # 8.5 Gm, Refills 0, Tot. Refills 0, Maintenance, 06/12/2217:28:00 EDT, Aerosol, Route to Pharmacy Electronically, [id number], [facility], 188, cm, 07/25/21 10:37:00 EST,... [...] information PersonnelName: Javy Wagner Address: Address: [address]
--- OUTSIDE RECORDS SUMMARY | 2022-08-22 15:47 | XMS_ITS | Continuity of Care Document ---
:1960 Author Organization [facility] Adult Address [address] [place] [address]- Care Team Providers Name Role Phone Javy Wagner Primary Care Physician En[place] [facility] [place] Date(s): 02/21/21 - 03/23/21 [facility] Adult [address] [place] [address]- Allergies, Adverse Reactions, Alerts Substance Reaction Severity Status NKA Active Immunizations Given and Recorded Vaccine Date Status Refusal Reason tetanus/diphtheria/pertussis, acel(Tdap) 01/10/15 Recorde d Influenza Virus Vaccine (oldterm) 08/24/06 Recorded Medications Ambien 10 mg oral tablet 1 [...]
--- OUTSIDE RECORDS SUMMARY | 2022-08-22 15:47 | XMS_ITS | Continuity of Care Document ---
:1960 Author Organization [facility] Address [address] [place] [address]- Care Team Providers Name Role Phone Javy Wagner Primary Care Physician [place] [facility] [place] 03/23/22 - 04/22/22 [facility] [address] [place] [address] [place] [address] Attending Physician: Garry Maya Admitting Physician: AdmtrGarry Referring Physician: Admtr ArLewis Allergies, Adverse Reactions, Alerts No Known Allergies Immunizations Given and Recorded Vaccine Date Status Refusal Reason tetanus/diphtheria/pertussis, acel(Tdap) 01/10/15 Recorde d Influenza Virus Vaccine (oldterm) 08/24/06 Recorded Medications Advair Diskus 250 mcg-50 mcg inhalation powder 1, puffs, Inhalation, 2 times a day, Brand name Advair only, # 28 each, Refills 1, Tot. Refills 1, Maintenance, 04/09/22 15:56:00 EDT, Powder, Route to Pharmacy Electronically, [id number], [facility], 188, cm, 07/10... Start Date: 04/09/22 Status: Ordered Problem List Condition Effective Dates Status Health Status Informant History of traumatic head Active injury(Confirmed) Insomnia(Confirmed) Active Social History Social History Type Response Smoking Status Former smoker, quit more lisbeth n 30 days ago; Stopped at age: 55; entered on: 12/30/19 Sex Male
--- OUTSIDE RECORDS SUMMARY | 2022-08-22 15:47 | XMS_ITS | Continuity of Care Document ---
:1960 Author Organization [facility] Address [address] [place] [address]- Care Team Providers Name Role Phone Javy Wagner Primary Care Physician En[place] [facility] [place](s): 01/12/20 - 01/19/20 [facility] [address] [place] [address]- [facility] Attending Physician: Chau Dickson MD Admitting Physician: [...]
--- OUTSIDE RECORDS SUMMARY | 2022-08-22 15:47 | XMS_ITS | Continuity of Care Document ---
:1960 Author Organization [facility] Adult Address [address] [place] [address]- Care Team Providers Name Role Phone Javy Wagner Primary Care Physician Encounter [facility] Date(s): 07/20/20 - 08/19/20 [facility] Adult [address] [place] [address]- Attending Physician: Garry Maya Admitting Physician: Garry [...]
== END 2022-08-22 16:06 | disposition left against medical advice (07) ==
PROVIDERS: Emergency Provider Emergency Medicine; PCP Physician Assistant Medical
DX: B86 Scabies (principal)

== ENCOUNTER 2023-01-18 11:43 | Emergency (ER) | payer MEDICARE, MEDICAID, SELFPAY ==
--- NOTE | ~2023-01-18 | XR_ITS ---
EXAMINATION: XR FOOT, LEFT CLINICAL INFORMATION: Left foot pain. COMPARISON: None available. TECHNIQUE: AP, lateral, and oblique views of the left foot. FINDINGS: There is a moderate size calcaneal heel enthesophyte. No visible acute fracture, dislocation or subluxation seen. The soft tissues are normal. XR/XR foot LT min 3V IMPRESSION: Moderate size calcaneal heel enthesophyte. No visible acute fracture, dislocation or subluxation seen.
[2023-01-18 12:09] VITALS: PULSE 99; RESP 18; TEMP 37.2; O2SAT 98; BMI 27.2
--- OUTSIDE RECORDS SUMMARY | 2023-01-18 12:26 | XMS_ITS | Continuity of Care Document ---
Author Name Unknown Organization [facility] Adult Address [address] [place] [address]- Care Team Providers Care Creative Consultant Name Role Phone Javy Wagner Primary Care Physician [place] [facility] [place](s): 08/20/22 - 09/19/22 [facility] Adult [address] [place] [address]- Allergies, Adverse Reactions, Alerts No Known Allergies Immunizations Given and Recorded Vaccine Date Status Refusal Reason tetanus/diphtheria/pertussis, acel(Tdap) 01/10/15 Recorded Influenza Virus Vaccine (oldterm) 08/24/06 Recorde d Medications Advair Diskus 250 mcg-50 mcg inhalation powder 1, puffs, Inhalation, 2 times a day, Brand name Advair only, # 28 each, Refills 1, Tot. Refills 1, Maintenance, 04/09/22 15:56:00 EDT, Powder, Route to Pharmacy Electronically, [id number], [facility], 188, cm, 07/10... Start Date: 04/09/22 Status: Ordered Azithromycin 5 Day Dose Pack 250 mg oral tablet 1 pack/packet, By Mouth, Once, # 6 tablet, 0 Refills, Soft Stop, 06/12/22 17:27:00 EDT, Tablet, [facility], Partial fill upon patient request if the prescription is for a schedule II opioid drug., 188, cm, 07/25/21 10:37:00 EST, Height Start Date: 06/12/22 Status: Ordered Medrol Dosepak 4 mg oral tablet 1 pack/packet, By Mouth, Once, # 21 tablet, 0 Refills, Soft Stop, 06/12/22 17:27:00 EDT, Tablet, [facility], Partial fill upon patient request if the prescription is for a schedule II opioid drug., 188, cm, 07/25/21 10:37:00 EST, Height Start Date: 06/12/22 Status: Ordered Ventolin HFA 108 mcg/inh inhalation aerosol with adapter 1 puffs, Inhalation, 4 times a day, PRN for wheezing, # 18 Gm, 0 Refills, Maintenance, 07/31/22 17:25:00 EST, Aerosol, [facility], Partial fill upon patient request if the prescription is for a schedule II opioid drug., 188, cm, 07/25/21 10... Start Date: 07/31/22 Status: Ordered Problem List Condition Confirmation Course Effective Dates Status Health St atus Informant History of traumatic head injury Confirmed Active Insomnia Confirmed Active Social History Social History Type Response Smoking Status Former smoker, quit more than 30 days ago; Stopped at age: 55; entered on: 12/30/19 Sex Male Patient Care team information Care Team Personnel Name: Javy Wagner Position: [facility] PCO Associate Professional Member Role: PCP Address: Address: [address] [place] [address]- Care Team Related Persons Name: COLTON CLEVELAND Address: home [address] [place] [address] Name: KINGS ARMENDARIZ Address: home [address] [place] [address]
--- OUTSIDE RECORDS SUMMARY | 2023-01-18 12:26 | XMS_ITS | Continuity of Care Document ---
Author Name Unknown Organization [facility] Address [address] [place] [address]- Care Team Providers Care Optical Lathe Operator Name Role Phone Javy Wagner [id number]19/20 - 05/19/20 [facility] [address] [place] [address]- [facility] Attending Physician: Admkendra, Garry Admitting Physician: AdmtrGarry Referring Physician: Admtr, Ar8 Allergies, Adverse Reactions, Alerts Substance Reaction Severity Status NKA Active Medications Ambien 10 mg oral tablet 1 tablet = 10 mg, By Mouth, Daily at bedtime, PRN as needed for insomnia, 0 Refills, Maintenance, 12/30/19 11:57:00 EDT, Tablet Start Date: 12/30/19 Status: Ordered Problem List Condition Effective Dates Status Health Status Inform ant History of traumatic head injury(Confirmed) Active Insomnia(Confirmed) Active Social History Social History Type Response Smoking Status Former smoker, quit more than 30 days ago; Stopped at age: 55; entered on: 12/30/19 Sex Male
--- OUTSIDE RECORDS SUMMARY | 2023-01-18 12:26 | XMS_ITS | Continuity of Care Document ---
Author Name Unknown Organization [facility] Address [address] [place] [address]- Care Team Providers Care Cold Header Operator Name Role Phone Javy Wagner Primary Care Physician ( [phone] Encounter [facility] [place] Date(s): 02/25/20 - 03/26/20 [facility] [address] [place] [address]- [facility] Attending Physician: Garry Maya Admitting Physician: Garry [...]
--- OUTSIDE RECORDS SUMMARY | 2023-01-18 12:26 | XMS_ITS | Continuity of Care Document ---
Author Name Unknown Organization [facility] Adult Address [address] [place] [address]- Care Team Providers Care Calender Operator Helper Name Role Phone Javy Wagner Primary Care Physician [id number] Date(s): 08/20/22 - 09/19/22 [facility] Adult [address] [place] [address]- Allergies, Adverse Reactions, Alerts No Known Allergies Immunizations Given and Recorded Vaccine Date Status Refusal Reason tetanus/diphtheria/pertussis, acel(Tdap) 01/10/15 Recorded Influenza Virus Vaccine (oldterm) 08/24/06 Recorde d Medications Advair Diskus 250 mcg-50 mcg inhalation powder 1, puffs, Inhalation, 2 times a day, Brand name Advair only, # 28 each, Refills 1, Tot. Refills 1, Maintenance, 04/09/22 15:56:00 EDT, Powder, Route to Pharmacy Electronically, [id number], [facility], 188, cm, 07/10... Start Date: 04/09/22 Status: Ordered Azithromycin 5 Day Dose Pack 250 mg oral tablet 1 pack/packet, By Mouth, Once, # 6 tablet, 0 Refills, Soft Stop, 06/12/22 17:27:00 EDT, Tablet, [facility], Partial fill upon patient request if the prescription is for a schedule II opioid drug., 188, cm, 07/25/21 10:37:00 EST, Height Start Date: 06/12/22 Status: Ordered Medrol Dosepak 4 mg oral tablet 1 pack/packet, By Mouth, Once, # 21 tablet, 0 Refills, Soft Stop, 06/12/22 17:27:00 EDT, Tablet, [facility], Partial fill upon patient request [...] Care Team Personnel Name: Javy Wagner Position: [facility] PCO Associate Professional Member Role: PCP Address: Address: [address] [place] [address]- Care Team Related Persons Name: COLTON CLEVELAND Address: home [address] [place] [address] Name: KINGS ARMENDARIZ Address: home [address] [place] [address]
--- OUTSIDE RECORDS SUMMARY | 2023-01-18 12:26 | XMS_ITS | Continuity of Care Document ---
Author Name Unknown Organization [facility] Address [address] [place] [address]- Care Team Providers Care Party Plan Demonstrator Name Role Phone Javy Wagner Primary Care Physician Encounter [facility] [place] Date(s): 09/10/19 - 01/08/20 [facility] [address] [place] [address]- [place] Attending Physician: Not on Staff, Attending MD Referring Physician: Not on Staff, Referring MD Allergies, Adverse Reactions, Alerts Substance Reaction Severity [...]
--- OUTSIDE RECORDS SUMMARY | 2023-01-18 12:26 | XMS_ITS | Continuity of Care Document ---
Author Name Unknown Organization [facility] Address [address] [facility], [address]r d Floor, [address] [place] [address]- Care Team Providers Care Orchestra Leader Name Role Phone Javy Wagner Primary Care Physician [place] [facility] [place] 05/05/20 - 06/04/20 [facility] [address], [address] Floor, [address] [place] [address]- [facility] Allergies, Adverse Reactions, Alerts Substance Reaction Severity [...]
--- OUTSIDE RECORDS SUMMARY | 2023-01-18 12:26 | XMS_ITS | Continuity of Care Document ---
Author Name Unknown Organization [facility] Adult Address [address] [place] [address]- Care Team Providers Care Siebel Administrator Name Role Phone Javy Wagner Primary Care Physician [place] [facility] [place]s): 06/12/22 - 06/19/22 [facility] Adult [address] [place] [address]- Encounter Diagnosis Acute asthmatic bronchitis(Discharge Diagnosis) - 06/12/22 Attending Physician: Not on Staff, Attending MD Referring Physician: Javy Wagner Allergies, Adverse Reactions, Alerts No Known Allergies Immunizations Given and Recorded Vaccine Date Status Refusal Reason tetanus/diphtheria/pertussis, acel(Tdap) 01/10/15 Recorded Influenza Virus Vaccine (oldterm) 08/24/06 Recorde d Medications Advair Diskus 250 mcg-50 mcg inhalation powder 1, puffs, Inhalation, 2 times a day, Brand name Advair only, # 28 each, Refills 1, Tot. Refills 1, Maintenance, 04/09/22 15:56:00 EDT, Powder, Route to Pharmacy Electronically, [id number], [facility], 188, cm, 07/10... Start Date: 04/09/22 Status: Ordered Azithromycin 5 Day Dose Pack 250 mg oral tablet 1 pack/packet, By Mouth, Once, # 6 tablet, 0 Refills, Soft Stop, 06/12/22 17:27:00 EDT, Tablet, [facility], Partial fill upon patient request if the prescription is for a schedule II opioid drug., 188, cm, 07/25/21 10:37:00 EST, Height Start Date: 06/12/22 Status: Ordered guaiFENesin 600 mg oral tablet, extended release 1 tablet = 600 mg, By Mouth, Every 12 hours, for 10 days, # 20 tablet, 0 Refills, Acute 06/22/22 17:28:00 EDT, 06/12/22 17:28:00 EDT, ER Tablet, [facility], Partial fill upon patient request if the prescription is for a schedule II opioid d... Start Date: 06/12/22 Stop Date: 06/22/22 Status: Ordered Medrol Dosepak 4 mg oral tablet 1 pack/packet, By Mouth, Once, # 21 tablet, 0 Refills, Soft Stop, 06/12/22 17:27:00 EDT, Tablet, [facility], Partial fill upon patient request if the prescription is for a schedule II opioid drug., 188, cm, 07/25/21 10:37:00 EST, Height Start Date: 06/12/22 Status: Ordered ProAir HFA 90 mcg/inh inhalation aerosol with adapter 1, puffs, Inhalation, Every 6 hours, PRN, # 8.5 Gm, Refills 0, Tot. Refills 0, Maintenance, 06/12/22 17:28:00 EDT, Aerosol, Route to Pharmacy Electronically, [id number], [facility], 188, cm, 07/25/21 10:37:00 EST,... Start Date: 06/12/22 Status: Ordered Problem List Condition Confirmation Course Effective Dates Status Health St atus Informant History of traumatic head injury Confirmed Active Insomnia Confirmed Active Diagnosis Diagnosis Type Effective Dates Health Status Clinical Service Informant Acute asthmatic bronchitis Discharge Diagnosis 06/12/22 Social History Social History Type Response Smoking Status Former smoker, quit more than 30 days ago; Stopped at age: 55; entered on: 12/30/19 Sex Male Patient Care team information Personnel Name: Javy Wagner Address: Address: [address]
--- OUTSIDE RECORDS SUMMARY | 2023-01-18 12:26 | XMS_ITS | Continuity of Care Document ---
Author Name Unknown Organization [facility] Address [address] [place] [address]- Care Team Providers Care Scrum Product Owner Name Role Phone Javy Wagner Primary Care Physician ( [phone] [place] [facility] [place] 12/30/19 - 02/03/[address] [address]- [facility] Attending Physician: Javy Wagner Admitting Physician: Javy Wagner Referring Physician: Javy Wagner Allergies, Adverse Reactions, [...]
--- OUTSIDE RECORDS SUMMARY | 2023-01-18 12:26 | XMS_ITS | Continuity of Care Document ---
Author Name Unknown Organization [facility] Address [address] [place] [address]- Care Team Providers Care School Year Nanny Name Role Phone Javy Wagner Primary Care Physician Encounter [facility] [place] Date(s): 05/05/20 - 06/04/20 [facility] [address] [place] [address]- [facility] Attending Physician: Garry Maya Admitting Physician: Admtr, ArLewis Referring Physician: Admtr, Ar8 Allergies, Adverse Reactions, [...]
--- OUTSIDE RECORDS SUMMARY | 2023-01-18 12:26 | XMS_ITS | Continuity of Care Document ---
Author Name Unknown Organization [facility] Adult Address [address] [place] [address]- Care Team Providers Care Senior Architectural Designer Name Role Phone Javy Wagner Primary Care Physician [place] [facility] [place](s): 11/28/22 - 12/28/22 [facility] [address] [place] [address]- Allergies, Adverse Reactions, Alerts No Known Allergies Immunizations Given and Recorded Vaccine Date Status Refusal Reason tetanus/diphtheria/pertussis, acel(Tdap) 01/10/15 Recorded Influenza Virus Vaccine (oldterm) 08/24/06 Recorde d Medications Advair Diskus 250 mcg-50 mcg inhalation powder 1, Doses, Inhalation, 2 times a day, # 60 each, Refills 0, Maintenance, 11/06/22 6:58:00 EST, [facility] Electron[facility], [id number], [facility], 188, cm, 07/25/21 10:37:00 EST, Height Start Date: 11/06/22 Status: Ordered Azithromycin 5 Day Dose Pack 250 mg oral tablet 1 pack/packet, By Mouth, Once, # 6 tablet, 0 Refills, Soft Stop, 06/12/22 17:27:00 EDT, Tablet, [facility], Partial fill upon patient request if the prescription is for a schedule II opioid drug., 188, cm, 07/25/21 10:37:00 EST, Height Start Date: 06/12/22 Status: Ordered Medrol Dosepak 4 mg oral tablet 1 pack/packet, By Mouth, Once, # 21 tablet, 0 Refills, Soft Stop, 06/12/22 17:27:00 EDT, Tablet, [facility], Partial fill upon patient request if the prescription is for a schedule II opioid drug., 188, cm, 07/25/21 10:37:00 EST, Height Start Date: 06/12/22 Status: Ordered ProAir HFA 90 mcg/inh inhalation aerosol 1 puffs, Inhalation, 4 times a day, PRN NEEDED FOR WHEEZING, # 18 Gm, 0 Refills, Maintenance, 11/06/22 7:40:00 EST, [facility], 50, INHALE 1 PUFF BY MOUTH 4 TIMES DAILY NEEDED FOR WHEEZING, 188, cm, 07/25/21 10:37:00 EST, Height Start Date: 11/06/22 Status: Ordered Problem List Condition Confirmation Course Effective Dates Status Health St atus Informant History of traumatic head injury Confirmed Active Insomnia Confirmed Active Social History Social History Type Response Smoking Status Former smoker, quit more than 30 days ago; Stopped at age: 55; entered on: 12/30/19 Sex Male Patient Care team information Care Team Personnel Name: Javy Wagner Position: [facility] PCO Associate Professional Member Role: PCP Address: Address: [address] [place] [address]- Care Team Related Persons Name: COLTON CLEVELAND Address: home [address] [place] [address] Name: KINGS ARMENDARIZ Address: [address] [place] [address]
--- OUTSIDE RECORDS SUMMARY | 2023-01-18 12:26 | XMS_ITS | Continuity of Care Document ---
Author Name Unknown Organization [facility] Adult Address [address] [place] [address]- Care Team Providers Care Manager Process Name Role Phone Javy Wagner Primary Care Physician Encounter [facility] [place] Date(s): 06/12/22 - 07/12/22 [facility] [address] [place] [address]- Allergies, Adverse Reactions, Alerts No Known Allergies Immunizations Given and Recorded Vaccine Date Status Refusal Reason tetanus/diphtheria/pertussis, acel(Tdap) 01/10/15 Recorded Influenza Virus Vaccine (oldterm) 08/24/06 Recorde d Medications Advair Diskus 250 mcg-50 mcg inhalation powder 1, puffs, Inhalation, 2 times a day, Brand name Advair only, # 28 each, Refills 1, Tot. Refills 1, Maintenance, 04/09/22 15:56:00 EDT, Powder, Route to Pharmacy Electronically, [id number], [facility], 188, cm, 07/10... Start Date: 04/09/22 Status: Ordered Azithromycin 5 Day Dose Pack 250 mg oral tablet 1 pack/packet, By Mouth, Once, # 6 tablet, 0 Refills, Soft Stop, 06/12/22 17:27:00 EDT, Tablet, [facility], Partial fill upon patient request if the prescription is for a schedule II opioid drug., 188, cm, 07/25/21 10:37:00 EST, Height Start Date: 06/12/22 Status: Ordered Medrol Dosepak 4 mg oral tablet 1 pack/packet, By Mouth, Once, # 21 tablet, 0 Refills, Soft Stop, 06/12/22 17:27:00 EDT, Tablet, [facility], Partial fill upon patient request if the prescription is for a schedule II opioid drug., 188, cm, 07/25/21 10:37:00 EST, Height Start Date: 06/12/22 Status: Ordered ProAir HFA 90 mcg/inh inhalation aerosol with adapter 1, puffs, Inhalation, Every 6 hours, PRN, # 8.5 Gm, Refills 0, Tot. Refills 0, Maintenance, 06/12/22 17:28:00 EDT, Aerosol, Route to Pharmacy Electronically, [id number], [facility], 188, cm, 07/25/21 10:37:00 EST,... Start Date: 06/12/22 Status: Ordered Problem List Condition Confirmation Course Effective Dates Status Health at Informant History of traumatic head injury Confirmed Active Insomnia Confirmed Active Social History Social History Type Response Smoking Status Former smoker, quit more than 30 days ago; Stopped at age: 55; entered on: 12/30/19 Sex Male Patient Care team information Personnel Name: Javy Wagner Address: Address: [address] [place], [place] [address]
--- OUTSIDE RECORDS SUMMARY | 2023-01-18 12:26 | XMS_ITS | Continuity of Care Document ---
Author Name Unknown Organization [facility] ed[facility] Address [address] [address]- Care Team Providers Care Radio Assembler Name Role Phone Javy Wagner Primary Care Physician [place] [facility] [place]s): 02/24/21 - 03/26/21 [facility] [address] [address] Attending Physician: Garry Maya Admitting Physician: Garry Maya Referring Physician: AdmtrGarry Allergies, Adverse Reactions, Alerts Substance Reaction Severity Status NKA Active Immunizations Given and Recorded Vaccine Date Status Refusal Reason tetanus/diphtheria/pertussis, acel(Tdap) 01/10/15 Recorded Influenza Virus Vaccine (oldterm) 08/24/06 Recorde d Medications Ambien 10 mg oral tablet 1 [...]
--- OUTSIDE RECORDS SUMMARY | 2023-01-18 12:26 | XMS_ITS | Continuity of Care Document ---
Author Name Unknown Organization [facility] Adult Address [address] [place] [address]- Care Team Providers Care Lead Technologist In Cytogenetics Name Role Phone Javy Wagner Primary Care Physician En[place] [facility] [place] [id number] Date(s): 05/12/20 - 06/11/20 [facility] Adult [address] [place] [address]- [facility] Attending Physician: Garry Maya Admitting Physician: AdmGarry gardner Referring Physician: Admtr, ArLewis Allergies, Adverse Reactions, Alerts Substance Reaction Severity [...]
--- OUTSIDE RECORDS SUMMARY | 2023-01-18 12:27 | XMS_ITS | Continuity of Care Document ---
Author Name Unknown Organization [facility] Adult Address [address] [place] [address]- Care Team Providers Care Passenger Agent Name Role Phone Javy Wagner Primary Care Physician ( [phone] [place] [facility] [place] 05/11/20 - 06/10/20 [facility] Adult [address] [place] [address]- [facility] Allergies, Adverse Reactions, Alerts Substance Reaction Severity [...]
--- OUTSIDE RECORDS SUMMARY | 2023-01-18 12:27 | XMS_ITS | Continuity of Care Document ---
Author Name Unknown Organization [facility] Adult Address [address] [place] [address]- Care Team Providers Care Tank Welder Name Role Phone Javy Wagner Primary Care Physician [place] [facility] [place] Date(s): 06/12/22 - 07/12/22 [facility] Adult [address] [place] [address]- Attending Physician: Garry Maya Admitting Physician: AdmtrGarry Referring Physician: Admtr, Ar8 Allergies, Adverse Reactions, Alerts No Known Allergies Immunizations Given and Recorded Vaccine Date Status Refusal Reason tetanus/diphtheria/pertussis, acel(Tdap) 01/10/15 Recorded Influenza Virus Vaccine (oldterm) 08/24/06 Recorde d Medications Advair Diskus 250 mcg-50 mcg inhalation powder 1, puffs, Inhalation, 2 times a day, Brand name Advair only, # 28 each, Refills 1, Tot. Refills 1, Maintenance, 04/09/22 15:56:00 EDT, Powder, Route to Pharmacy Electronically, [id number], [facility], 188, cm, 07/10... Start Date: 04/09/22 Status: Ordered Azithromycin 5 Day Dose Pack 250 mg oral tablet 1 pack/packet, By Mouth, Once, # 6 tablet, 0 Refills, Soft Stop, 06/12/22 17:27:00 EDT, Tablet, [facility], Partial fill upon patient request if the prescription is for a schedule II opioid drug., 188, cm, 07/25/21 10:37:00 EST, Height Start Date: 06/12/22 Status: Ordered Medrol Dosepak 4 mg oral tablet 1 pack/packet, By Mouth, Once, # 21 tablet, 0 Refills, Soft Stop, 06/12/22 17:27:00 EDT, Tablet, [facility], Partial fill upon patient request if the prescription is for a schedule II opioid drug., 188, cm, 07/25/21 10:37:00 EST, Height Start Date: 06/12/22 Status: Ordered ProAir HFA 90 mcg/inh inhalation aerosol with adapter 1, puffs, Inhalation, Every 6 hours, PRN, # 8.5 Gm, Refills 0, Tot. Refills 0, Maintenance, 06/12/22 17:28:00 EDT, Aerosol, Route to Pharmacy Electronically, [id number], [facility], 188, cm, 07/25/21 10:37:00 EST,... Start Date: 06/12/22 Status: Ordered Problem List Condition Confirmation Course Effective Dates Status Health St at Informant History of traumatic head injury Confirmed Active Insomnia Confirmed Active Social History Social History Type Response Smoking Status Former smoker, quit more than 30 days ago; Stopped at age: 55; entered on: 12/30/19 Sex Male Patient Care team information Personnel Name: Javy Wagner Address: Address: [address] [place], [place] [address]
--- OUTSIDE RECORDS SUMMARY | 2023-01-18 12:27 | XMS_ITS | Continuity of Care Document ---
Author Name Unknown Organization [facility] Adult Address [address] [place] [address]- Care Team Providers Care Major Account Manager Name Role Phone Javy Wagner Primary Care Physician [id number] Date(s): 06/11/22 - 07/11/22 [facility] [address] [place] [address]- Allergies, Adverse Reactions, Alerts No Known Allergies Immunizations Given and Recorded Vaccine Date Status Refusal Reason tetanus/diphtheria/pertussis, acel(Tdap) 01/10/15 Recorded Influenza Virus Vaccine (oldterm) 08/24/06 Recorde d Medications Advair Diskus 250 mcg-50 mcg inhalation powder 1, puffs, Inhalation, 2 times a day, Brand name Advair only, # 28 each, Refills 1, Tot. Refills 1, Maintenance, 04/09/22 15:56:00 EDT, Powder, Route to Pharmacy Electronically, [id number], [facility], 188, cm, 07/10... Start Date: 04/09/22 Status: Ordered Azithromycin 5 Day Dose Pack 250 mg oral tablet 1 pack/packet, By Mouth, Once, # 6 tablet, 0 Refills, Soft Stop, 06/12/22 17:27:00 EDT, Tablet, [facility], Partial fill upon patient request if the prescription is for a schedule II opioid drug., 188, cm, 07/25/21 10:37:00 EST, Height Start Date: 06/12/22 Status: Ordered Medrol Dosepak 4 mg oral tablet 1 pack/packet, By Mouth, Once, # 21 tablet, 0 Refills, Soft Stop, 06/12/22 17:27:00 EDT, Tablet, [facility], Partial fill upon patient request if the prescription is for a schedule II opioid drug., 188, cm, 07/25/21 10:37:00 EST, Height Start Date: 06/12/22 Status: Ordered ProAir HFA 90 mcg/inh inhalation aerosol with adapter 1, puffs, Inhalation, Every 6 hours, PRN, # 8.5 Gm, Refills 0, Tot. Refills 0, Maintenance, 06/12/22 17:28:00 EDT, Aerosol, Route to Pharmacy Electronically, [id number], [facility], 188, cm, 07/25/21 10:37:00 [...] Personnel Name: Javy Wagner Address: Address: [address] [place], [place] [address]
--- OUTSIDE RECORDS SUMMARY | 2023-01-18 12:27 | XMS_ITS | Continuity of Care Document ---
Author Name Unknown Organization [facility] Adult Address [address] [place] [address]- Care Team Providers Care Transporter Driver Name Role Phone Javy Wagner Primary Care Physician ( [phone] Encounter [facility] [place] Date(s): 12/30/19 - 01/06/20 [facility] [address] [place] [address]- [facility] Encounter Diagnosis New onset of headaches after age 50(Discharge Diagnosis) - 12/30/19 Insomnia(Discharge Diagnosis) - 12/30/19 History of traumatic head injury(Discharge Diagnosis) - 12/30/19 Attending Physician: Javy Wagner Allergies, Adverse Reactions, [...] of traumatic head injury(Confirmed) Active Insomnia(Confirmed) Active Diagnosis Diagnosis Type Effective Dates Health Status Cl inical Service Informant Insomnia Discharge Diagnosis 12/30/19 New onset of headaches after age 50 Discharge Diagnosis 12/30/19 History of traumatic head injury Discharge Diagnosis 12/30/19 Procedures Procedure Date Related Diagnosis Body Site Status History of tonsillectomy Completed Social History Social History Type Response Smoking Status Former smoker, quit more than 30 days ago; Stopped at age: 55; entered on: 12/30/19 Sex Male
--- OUTSIDE RECORDS SUMMARY | 2023-01-18 12:27 | XMS_ITS | Continuity of Care Document ---
Author Name Unknown Organization [facility] Adult Address [address] [place] [address]- Care Team Providers Care Glazier Supervisor Name Role Phone Javy Wagner Primary Care Physician [place] [facility] [place] 08/28/20 [facility] [address] [place] [address]- Allergies, Adverse Reactions, Alerts Substance Reaction Severity [...]
--- NOTE | 2023-01-18 12:34 | ED_ITS ---
HPI - Extremity Problem General Chief complaint: General Medical Stated complaint: L leg pain, more towards arch of foot Time Seen by Provider: 01/18/23 12:03 Source: patient Mode of arrival: ambulatory Limitations: no limitations History of Present Illness HPI Narrative: 62yoM presenting to the ER with complaints of left foot pain at the arch of the foot that started today when he woke up. He reports that he did initially have some left hip and knee pain yesterday almost completely resolved. He reports he has never had this in the past. He denies any recent falls or trauma, chest pain or shortness of breath, fevers, swelling of any of the joints, lower extremity edema or calf tenderness, changes in color of the foot or the toenails, paresthesias or any other symptoms complaints or concerns at this time. He denies history of DVT or gout. MD Complaint: extremity pain Onset (ago): hour(s) Pain Consistency: constant Location: left and other (foot ) Quality: aching Radiation: none Relieving factors: nothing Exacerbating factors: weight bearing, walking and palpation Associated symptoms: denies other symptoms Related Data Home Medications Medication Instructions Recorded Confirmed escitalopram oxalate 20 mg tablet 1 tab PO DAILY 06/08/20 06/08/20 fluticasone 250 mcg-salmeterol 50 1 inh inhalation BID 06/08/20 06/10/20 mcg/dose blistr powdr for inhalation (Advair Diskus) lorazepam 0.5 mg tablet 1 tab PO DAILY PRN Anxiety 06/08/20 06/08/20 omeprazole 20 mg capsule,delayed 1 cap PO QAM 06/08/20 06/08/20 release oxcarbazepine 150 mg tablet PO 06/08/20 risperidone 3 mg tablet 2 tab PO BEDTIME 06/08/20 06/08/20 zolpidem 10 mg tablet 1 tab PO BEDTIME PRN Insomnia 06/08/20 06/08/20 escitalopram oxalate 10 mg tablet 10 mg PO DAILY 06/10/20 06/10/20 albuterol sulfate 90 mcg/actuation 0 mcg inhalation 06/28/22 aerosol inhaler methylprednisolone 4 mg tablets in mg PO DIRECTED 06/28/22 a dose pack Previous Rx's Medication Instructions Recorded cetirizine 10 mg tablet 10 mg PO DAILY PRN Itch, rash #14 05/22/22 tabs prednisone 20 mg tablet 60 mg PO DAILY 3 days #9 tabs 05/22/22 Allergies Allergy/AdvReac Type Severity Reaction Status Date / Time nut - unspecified [NUTS] Allergy Unknown WHEEZES Verified 06/28/22 12:37 DAIRY PRODUCTS Allergy Unknown WHEEZES Uncoded 06/28/22 12:37 SEASONAL ALLERGIES Allergy Unknown DIFFICULTY Uncoded 06/28/22 12:37 BREATHING Review of Systems Review of Systems: Constitutional : No Weight loss, No Fever, No Chills, No Night Sweats, No Fatigue, No Malaise ENT/Mouth : No Hearing loss, No Ear Pain, No Nasal Congestion, No Sinus Pain, No Hoarseness, No sore throat, No Rhinorrhea, No Swallowing Difficulty Eyes: No Eye Pain, No Swelling, No Redness, No Foreign Body, No Discharge, No Vision Changes Cardiovascular : No Chest Pain, No SOB, No Dyspnea on Exertion, No Orthopnea, No Edema, No Palpitations Respiratory : No Cough, No Sputum, No Wheezing, No Smoke Exposure, No Dyspnea Gastrointestinal : No Nausea, No Vomiting, No Diarrhea, No Constipation, No abdominal Pain, No Hematochezia, No Melena Genitourinary : no irregular bleeding, No Dysuria, No Urinary Frequency, No Hematuria, No Urinary Incontinence, No Urgency, No Flank Pain, No Urinary Flow Changes, No Hesitancy Musculoskeletal : + left foot joint pain, No Myalgias, No Joint Swelling Skin : No Skin Lesions, No rash Neuro : No Weakness, No Numbness, No Paresthesias, No Loss of Consciousness, No Dizziness, No Headache Psych : No Anxiety/Panic, No Depression, No SI/HI/AH/VH, No Social Issues, Heme/Lymph: No Bruising, No Bleeding,No Lymphadenopathy Endocrine : No Polyuria, No Polydipsia, No Temperature Intolerance Yes all other systems are reviewed and are negative PMFSH Past Medical History Attestation statement: The following information was validated with the patient. Source: old records reviewed and nursing notes reviewed Medical History Anxiety Asthma Barretts esophagus Depression Environmental allergies GERD (gastroesophageal reflux disease) Post traumatic stress disorder (PTSD) Seasonal allergies Surgical History Hx of colonoscopy Hx of esophagogastroduodenoscopy Hx of tonsillectomy Social History Social History Alcohol intake: never Patient Tobacco Use Status: Never used Tobacco Advance Directives: No Advance Directives Information Provided: Yes Current occupational status: retired Current occupation: rt hand Physical Exam Vital Signs: Vital Signs: Last Vital Signs Temp 98.9 F 01/18/23 12:09 Pulse 99 01/18/23 12:09 Resp 18 01/18/23 12:09 Pulse Ox 98 01/18/23 12:09 O2 Del Method Room Air 01/18/23 12:09 BMI result Body Mass Index 27.2 vital signs have been reviewed as normal and appeared to be correct. Blood pressure pt refused. Heart rate normal. Respiration rate normal. Temperature normal. Oxygen saturation normal. Appearance: Alert. Oriented X3. No acute distress. Head: Normal external exam. Normocephalic. Atraumatic. Eyes: PERRLA. EOMI. Conjunctiva and sclera normal. Eyelids normal. ENT: Pharynx normal. Uvula midline. Moist mucous membranes. Neck: Normal inspection. Neck supple. FROM. CVS: Normal heart rate and rhythm. Respiratory: No respiratory distress. Painless inspiration. Skin: Skin warm and dry. Normal skin color. Normal skin turgor. No rashes/lesions/lacerations noted. Extremities: No lower extremity edema. patient with TTP to left foot at the plantar aspect worse with door T flexing of the toes consistent with plantar fasciitis. Otherwise all other Extremities exhibit normal range of motion and nontender. Neuro: Oriented X 3. No motor deficit. No sensory deficit. Reflexes normal. Normal steady gait. No focal neuro deficits noted. Vascular: + radial pulses/+ 2 distal pedal pulses/+2 dorsalis pedis b/l. Normal cap refill. No cyanosis noted to upper extremity nails and lower extremity toes nails. Course Course Course Narrative: patient most likely plantar fasciitis. Considered foot sprain/ fracture alth ough less likely due to no injury. Not consistent with septic joint. Not consistent with gout. Not consistent with DVT as there is no lower extremity edema or calf tenderness. Will obtain x-ray of negative patient will be discharged with podiatry referral. He reports that he does not want to take any medications due to he is not like to take medications due to medications have many eyes. Along with instructions follow-up with PCP. Medical Decision Making Independent Interpretation I performed an independent interpretation of an: Plain X-Ray ( Left foot x-ray viewed by myself agreeable radiology report) Radiology Impression Discussion of test interpretation with radiology: I have reviewed the radiologist's reading. Radiologist Impression: FINDINGS: There is a moderate size calcaneal heel enthesophyte. No visible acute fracture, dislocation or subluxation seen. The soft tissues are normal. ? XR/XR foot LT min 3V IMPRESSION: Moderate size calcaneal heel enthesophyte. No visible acute fracture, dislocation or subluxation seen.? Discharge Plan Discharge Clinical Impression: Plantar fasciitis of left foot, Heel spur Patient Disposition: Home, Self-Care Instructions: Plantar Fasciitis (ED), Heel Spur (ED), Plantar Fasciitis Exercises (ED) Prescriptions: No Action fluticasone propion-salmeterol [Advair Diskus] 250-50 mcg/dose blister with device 1 inh inhalation BID oxcarbazepine 150 mg tablet PO risperidone 3 mg tablet 2 tab PO BEDTIME lorazepam 0.5 mg tablet 1 tab PO DAILY PRN (Reason: Anxiety) omeprazole 20 mg capsule,delayed release(DR/EC) 1 cap PO QAM zolpidem 10 mg tablet 1 tab PO BEDTIME PRN (Reason: Insomnia) escitalopram oxalate 20 mg tablet 1 tab PO DAILY escitalopram oxalate 10 mg tablet 10 mg PO DAILY cetirizine 10 mg tablet 10 mg PO DAILY PRN (Reason: Itch, rash) Qty: 14 0RF prednisone 20 mg tablet 60 mg PO DAILY 3 Days Qty: 9 0RF albuterol sulfate 90 mcg/actuation HFA aerosol inhaler 0 mcg inhalation methylprednisolone 4 mg tablets,dose pack PO DIRECTED Referrals: SONY WRIGHT [Primary Care Provider] - 2 days (your pcp) Bentley Ochoa [Physician] -
[2023-01-18] MEDS: Ibuprofen 800 MG TABLET PO (13:19)
== END 2023-01-18 13:23 | disposition home or self-care (01) ==
PROVIDERS: Emergency Provider Emergency Medicine; PCP Physician Assistant Medical
DX: M72.2 Plantar fascial fibromatosis (principal); M77.32 Calcaneal spur, left foot; M79.605 Pain in left leg; Z79.899 Other long term (current) drug therapy
CPT/HCPCS: 73630; 99283; 99284

== ENCOUNTER 2023-01-26 10:01 | Outpatient (REF) | payer MEDICARE, MEDICAID, SELFPAY ==
[2023-01-26 10:21] LABS: MANUAL DIFF FLAG NO
[2023-01-26 10:30] LABS: Basophils Absolute Auto 0.1 X10*3/uL (0.0-0.2); Basophils Percent Auto 1.2 % (0-2); Eosinophils Absolute Auto 0.4 X10*3/uL (0.0-0.4); Eosinophils Percent Auto 6.3 % (0-4); Hematocrit 47.7 % (42.0-52.0); Hemoglobin 16.5 g/dl (14.0-18.0); Imm Gran Abs Auto 0.02 X10*3/uL (0.00-0.03); Imm Gran Pct Auto 0.3 % (0.0-0.4); Lymphocytes Absolute Auto 1.2 X10*3/uL (1.2-4.9); Lymphocytes Percent Auto 19.1 % (20-40); Mean Corpuscular HGB Conc 34.6 g/dl (31.0-36.0); Mean Corpuscular Hemoglobin 31.3 pg (27.0-33.0); Mean Corpuscular Volume 90.3 fL (80.0-98.0); Mean Platelet Volume 8.9 fL (9.4-12.4); Monocytes Absolute Auto 0.5 X10*3/uL (0.1-1.2); Monocytes Percent Auto 8.8 % (2-11); Neutrophils Absolute Auto 3.9 x10*3/uL (2.0-8.3); Neutrophils Percent Auto 64.3 % (45-73); Platelet Count 315 X10*3/uL (160-400); Red Blood Count 5.28 X10*6/uL (4.60-5.80); Red Cell Distribution Width 12.8 % (11.0-16.0)
[2023-01-26 11:30] LABS: Alanine Aminotransferase 36 U/L (0-40); Albumin Level 4.3 g/dL (3.5-5.0); Alkaline Phosphatase 64 U/L (39-117); Aspartate Amino Transferase 27 U/L (5-37); Bilirubin Direct 0.4 mg/dL (0.0-0.5); Bilirubin Total 1.8 mg/dL (0.0-1.0); Cholesterol 181 mg/dL; Glucose Fasting 103 mg/dL (60-99); HDL Cholesterol 70 mg/dL; LDL Cholesterol Calculated 99 mg/dl; Total Protein 6.4 g/dL (6.5-8.0); Triglycerides 60 mg/dL
[2023-01-28 16:27] LABS: Homocysteine 13.1 umol/L (<11.4)
[2023-02-01 11:13] LABS: Vitamin D 25-OH, D2 <4 ng/mL; Vitamin D 25-OH, D3 54 ng/mL; Vitamin D 25-OH, Total 54 ng/mL (30-100)
== END 2023-01-26 10:02 | disposition home or self-care (01) ==
LOC: HO.LAB 10:01
PROVIDERS: Visit Provider Psychiatry & Neurology Psychiatry
DX: F25.9 Schizoaffective disorder, unspecified (principal)
CPT/HCPCS: 36415; 80061; 80076; 82306; 82947; 83090; 85025

== ENCOUNTER 2023-03-21 12:49 | Outpatient (REF) | payer MEDICARE, MEDICAID, SELFPAY | END 2023-03-21 12:50 | disposition home or self-care (01) | LOC: HO.HOSX 12:49 | PROVIDERS: Visit Provider Physician Assistant | DX: Z13.89 Encounter for screening for other disorder (principal) ==

== ENCOUNTER 2023-06-27 08:45 | Emergency (ER) | payer MEDICARE, MEDICAID, SELFPAY ==
--- NOTE | ~2023-06-27 | XR_ITS ---
EXAMINATION: XR FOOT, LEFT CLINICAL INFORMATION: Injury. COMPARISON: None available. TECHNIQUE: AP, lateral, and oblique views of the left foot. FINDINGS: There is a nondisplaced fracture mid segment proximal phalanx fourth digit with mild soft tissue swelling. No additional fracture seen. The ankle mortise and subtalar joints are normal. There is a moderate size calcaneal heel enthesophyte. XR/XR foot LT min 3V IMPRESSION: Nondisplaced fracture mid segment proximal phalanx fourth digit with mild soft tissue swelling.
[2023-06-27 09:00] VITALS: BP 00/00; PULSE 84; RESP 18; TEMP 36.4; O2SAT 98; BMI 26.2
--- NOTE | 2023-06-27 09:03 | PC.NURSE ---
Pt refusing blood pressure
--- NOTE | 2023-06-27 09:39 | PC.NURSE ---
pt refusing vital signs and very rude.
--- NOTE | 2023-06-27 09:50 | ED.LOWEXIN ---
HPI - Extremity Injury (Lower) General Chief Complaint: Extremity Injury, Lower Stated Complaint: l foot toes inj Time Seen by Provider: 06/27/23 09:31 Source: patient Mode of arrival: ambulatory Limitations: no limitations History of Present Illness HPI Narrative: Patient is a 62-year-old male presenting to the emergency department with complaint of pain to left 4th and 5th toes after accidentally kicking a table leg at home 5-6 days ago. States he has been icing the area but has had continued pain and swelling. Denies any numbness or tingling. Denies any other injuries. complaint: foot injury Onset (ago): day(s) Injury: Left: toes Place: home Severity: mild Relieving factors: rest Exacerbating factors: weight bearing and movement Context: direct blow Associated symptoms: swelling Other symptoms: none Treatments prior to arrival: cold therapy Related Data Home Medications Medication Instructions Recorded Confirmed escitalopram oxalate 20 mg tablet 1 tab PO DAILY 06/08/20 06/08/20 fluticasone 250 mcg-salmeterol 50 1 inh inhalation BID 06/08/20 06/10/20 mcg/dose blistr powdr for inhalation (Advair Diskus) lorazepam 0.5 mg tablet 1 tab PO DAILY PRN Anxiety 06/08/20 06/08/20 omeprazole 20 mg capsule,delayed 1 cap PO QAM 06/08/20 06/08/20 release oxcarbazepine 150 mg tablet PO 06/08/20 risperidone 3 mg tablet 2 tab PO BEDTIME 06/08/20 06/08/20 zolpidem 10 mg tablet 1 tab PO BEDTIME PRN Insomnia 06/08/20 06/08/20 escitalopram oxalate 10 mg tablet 10 mg PO DAILY 06/10/20 06/10/20 albuterol sulfate 90 mcg/actuation 0 mcg inhalation 06/28/22 aerosol inhaler methylprednisolone 4 mg tablets in mg PO DIRECTED 06/28/22 a dose pack Previous Rx's Medication Instructions Recorded cetirizine 10 mg tablet 10 mg PO DAILY PRN Itch, rash #14 05/22/22 tabs prednisone 20 mg tablet 60 mg (3 x 20 mg) PO DAILY 3 days 05/22/22 #9 tabs Allergies Allergy/AdvReac Type Severity Reaction Status Date / Time nut - unspecified [NUTS] Allergy Unknown WHEEZES Verified 06/28/22 12:37 DAIRY PRODUCTS Allergy Unknown WHEEZES Uncoded 06/28/22 12:37 SEASONAL ALLERGIES Allergy Unknown DIFFICULTY Uncoded 06/28/22 12:37 BREATHING Review of Systems Review of Systems: As per MDM. Yes all other systems are reviewed and are negative Constitutional: Constitutional: Reports as per HPI [facility] Past Medical History Medical History Anxiety Asthma Barretts esophagus Depression Environmental allergies GERD (gastroesophageal reflux disease) Post traumatic stress disorder (PTSD) Seasonal allergies Surgical History Hx of colonoscopy Hx of esophagogastroduodenoscopy Hx of tonsillectomy Social History Social History Alcohol intake: never Patient Tobacco Use Status: Never used Tobacco Advance Directives: No Current occupational status: retired Current occupation: rt hand Physical Exam Vital Signs: Vital Signs: Last Vital Signs Temp 97.5 F 06/27/23 09:00 Pulse 84 06/27/23 09:00 Resp 18 06/27/23 09:00 BP 00/00 L 06/27/23 09:00 Pulse Ox 98 06/27/23 09:00 BMI result Body Mass Index 26.2 Vital signs have been reviewed and appear to be correct. Patient adamantly refusing blood pressure. Radial pulse 80. Heart rate normal. Respiratory rate normal. Temperature normal. Oxygen saturation normal. Const: General: cooperative, healthy appearing and no acute distress Orientation/consciousness: oriented to person, oriented to place, oriented to time and patient oriented x3 Limitations: no limitations HEENT: Head: Yes normocephalic and Yes atraumatic Ears: external ears normal General nose exam: Normal external nose present Face and sinus: Yes face symmetric Mouth: oropharynx normal and moist mucous membranes Throat: Yes uvula midline Eyes: Pupils: Equal, round and reactive pupils present Neck: Neck: Yes normal visual inspection and Yes supple Resp: Effort & Inspection: normal respiratory effort and able to speak in complete sentences Auscultation: clear to auscultation bilaterally Cardio: Rate: regular rate Rhythm: regular rhythm Heart sounds: S1 normal heart sound present and S2 normal heart sound present GI: Palpation (GI): Soft to palpation and nontender Auscultation: normoactive bowel sounds : General: Yes no CVA tenderness Back/Spine/Pelvis: Back: no CVA tenderness Skin: General skin exam: elasticity normal and turgor normal Neuro: General: oriented to person, oriented to place, oriented to time, patient oriented x3, moves all extremities, no focal motor deficits and CN's II-XI intact bilaterally Cranial nerves: Yes Equal, round and reactive pupils present Cognition (Neuro): normal cognition Extrem: General: Yes full ROM, Yes no pedal edema and Yes no calf tenderness Left upper extremity: hand Details: vascular exam Details: radial pulse present and normal capillary refill Left lower extremity: foot Details: normal capillary refill, abnormal to inspection (mild swelling to 4th and 5th digits) Details: not erythematous and no deformities, tenderness Location: of another digit Location: the 4th digit, the 5th digit and along the entire digit and abnormal ROM of toe (decreased ROM with flexion and extension of 4th and 5th toes); no unusual warmth and no ecchymosis Psych: Mental Status: mental status grossly normal Affect: normal affect Thought process: Normal thought process present Medical Decision Making Medical Decision Making [facility] Narrative: Patient is a 62-year-old male presenting to the emergency department with complaint of pain to left 4th and 5th toes after accidentally kicking a table leg at home 5-6 days ago. On exam patient is awake, A+Ox3, patient is adamantly refusing blood pressure measurement, 2+ radial pulse, VS otherwise WNL, afebrile, normal neurological exam without focal deficits, physical exam findings as above. Given reported symptoms and physical exam findings, initial differential includes contusion, strain, fracture. X-ray notable for nondisplaced fracture of left 4th proximal phalanx of foot. My interpretation is in agreement with the radiologist's interpretation. Fractured phalanx yunier taped to 3rd toe. At patient advised to elevate foot while at rest, apply ice intermittently, Tylenol and ibuprofen as needed for discomfort. Will refer to orthopedics for any ongoing symptoms. Return precautions discussed at bedside. Patient verbalized understanding of and agreement with plan. Differential Diagnosis Differential Diagnoses: The differential diagnosis associated with the presentation includes As per [facility] Independent Interpretation I performed an independent interpretation of an: Plain X-Ray Interpretation: Fracture of left 4th proximal phalanx, nondisplaced Radiology Impression Discussion of test interpretation with radiology: I have reviewed the radiologist's reading. Radiologist Impression: XR/XR foot LT min 3V IMPRESSION: Nondisplaced fracture mid segment proximal phalanx fourth digit with mild soft tissue swelling. External Record Review External record reviewed: Inpatient record, Office record and Outpatient record Discharge Plan Discharge Clinical Impression: Fracture, phalanx, foot Qualifiers: Encounter type: initial encounter Toe: lesser toe Fracture type: closed Phalanx: proximal Fracture alignment: nondisplaced Patient Disposition: Home, Self-Care Instructions: Toe Fracture (ED), R.I.C.E. Treatment (ED) Additional Instructions: You have been evaluated in the emergency department today for foot pain. Your x-ray shows a nondisplaced fracture of your 4th toe on your left foot. Your toe was yunier taped in the emergency department. You should continue to tape your toe in this manner until your pain resolves. Please rest, ice, and elevate your foot, and resume normal activities as tolerated. We recommend you take 600mg ibuprofen every 6 hours or 650mg Tylenol every 6 hours as needed for pain. If needed you can alternate these medications as they take 1 medication every 3 hours. For instance at noon take ibuprofen, then at 3:00 p.m. take Tylenol, then at 6:00 p.m. take ibuprofen. Please schedule an appointment for follow-up with your primary care provider this week. Return to the emergency department if you experience worsening pain, numbness, tingling, change of color in your toe/foot, or any other concerning symptoms. If your symptoms persist beyond the next 1-2 weeks, please follow up with orthopedics, their information is included in your discharge instructions. Prescriptions: No Action fluticasone propion-salmeterol [Advair Diskus] 250-50 mcg/dose blister with device 1 inh inhalation BID oxcarbazepine 150 mg tablet PO risperidone 3 mg tablet 2 tab PO BEDTIME lorazepam 0.5 mg tablet 1 tab PO DAILY PRN (Reason: Anxiety) omeprazole 20 mg capsule,delayed release(DR/EC) 1 cap PO QAM zolpidem 10 mg tablet 1 tab PO BEDTIME PRN (Reason: Insomnia) escitalopram oxalate 20 mg tablet 1 tab PO DAILY escitalopram oxalate 10 mg tablet 10 mg PO DAILY cetirizine 10 mg tablet 10 mg PO DAILY PRN (Reason: Itch, rash) Qty: 14 0RF prednisone 20 mg tablet 60 mg PO DAILY 3 Days Qty: 9 0RF albuterol sulfate 90 mcg/actuation HFA aerosol inhaler 0 mcg inhalation methylprednisolone 4 mg tablets,dose pack PO DIRECTED Referrals: [facility] [place] [facility] [Provider Group] Interventions: ED Discharge Assessment Last Done: 06/27/23 10:10 Discharge Date/Time: 06/27/23 10:11
== END 2023-06-27 10:11 | disposition home or self-care (01) ==
PROVIDERS: Emergency Provider Emergency Medicine Emergency Medical Services; PCP Internal Medicine
DX: S92.515A Nondisplaced fracture of proximal phalanx of left lesser toe(s), initial encounter for closed fracture (principal); W22.03XA Walked into furniture, initial encounter; Z79.899 Other long term (current) drug therapy; Y93.9 Activity, unspecified; Y92.9 Unspecified place or not applicable; Y99.9 Unspecified external cause status
CPT/HCPCS: 73630; 99283

== ENCOUNTER 2024-01-24 07:41 | Outpatient (REF) | payer MEDICARE, MEDICAID, SELFPAY | END 2024-01-24 07:42 | disposition home or self-care (01) | LOC: HO.HOSX 07:41 | PROVIDERS: Visit Provider Orthopaedic Surgery | DX: Z13.89 Encounter for screening for other disorder (principal) ==

== ENCOUNTER 2024-06-29 10:19 | Emergency (ER) | payer MEDICARE, MEDICAID, SELFPAY ==
--- NOTE | ~2024-06-29 | XR_ITS ---
EXAMINATION: XR FOOT, RIGHT CLINICAL INFORMATION: Painful bump plantar to the second metatarsophalangeal joint. Question foreign body. COMPARISON: No relevant prior studies are available for comparison. TECHNIQUE: AP, lateral, and bilateral oblique views of the right foot. FINDINGS: No radiopaque foreign body. No acute fracture or dislocation. Bipartite fibular hallux sesamoid. Mild joint space with small marginal osteophytes at the fibular hallux sesamoid. Dorsal spurring at the navicular. No concerning lytic or blastic osseous lesion. Plantar calcaneal spur. XR/XR foot RT min 3V IMPRESSION: 1. No radiopaque foreign body. 2. 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 3. Dorsal spurring at the navicular. 4. Plantar calcaneal spur. Electronically signed by: Supa Pandya MD 06/29/2024 02:29 PM EDT
[2024-06-29 10:54] VITALS: BP 0/0; PULSE 85; RESP 16; TEMP 36.8; O2SAT 100; BMI 27.5
--- NOTE | 2024-06-29 10:57 | PC.NURSE ---
Pt refuses to have his BP done- and threatened nurse with being sued
--- NOTE | 2024-06-29 11:38 | ED_ITS ---
HPI - General Adult General Chief complaint: Extremity Injury, Lower Stated complaint: R foot pain Time Seen by Provider: 06/29/24 11:38 Source: patient Mode of arrival: ambulatory Limitations: no limitations History of Present Illness ED Provider: Giovanny WEINSTEIN narrative: Patient is a 63-year-old male with history of PTSD, anxiety, GERD, asthma, Barretts esophagus presenting to the emergency department with complaint of pain to plantar surface of right foot for the past week. Denies any known injury or trauma. Questioning foreign body. Has not taken any OTC medications for his symptoms. Denies fevers, discharge or drainage from the area. Adamantly refusing blood pressure assessment. MD complaint: foot pain Onset (ago): week(s) Relieving factors: rest Exacerbating factors: other (weight bearing/walking) Associated symptoms: denies other symptoms Treatments prior to arrival: none Related Data Home Medications ?Medication ?Instructions ?Recorded ?Confirmed escitalopram oxalate 20 mg tablet 1 tab PO DAILY 06/08/20 06/08/20 fluticasone 250 mcg-salmeterol 50 1 inh inhalation BID 06/08/20 06/10/20 mcg/dose blistr powdr for inhalation (Advair Diskus) lorazepam 0.5 mg tablet 1 tab PO DAILY PRN Anxiety 06/08/20 06/08/20 omeprazole 20 mg capsule,delayed 1 cap PO QAM 06/08/20 06/08/20 release oxcarbazepine 150 mg tablet PO 06/08/20 risperidone 3 mg tablet 2 tab PO BEDTIME 06/08/20 06/08/20 zolpidem 10 mg tablet 1 tab PO BEDTIME PRN Insomnia 06/08/20 06/08/20 escitalopram oxalate 10 mg tablet 10 mg PO DAILY 06/10/20 06/10/20 albuterol sulfate 90 mcg/actuation 0 mcg inhalation 06/28/22 aerosol inhaler methylprednisolone 4 mg tablets in mg PO DIRECTED 06/28/22 a dose pack Previous Rx's ?Medication ?Instructions ?Recorded cetirizine 10 mg tablet 10 mg PO DAILY PRN Itch, rash #14 05/22/22 tabs prednisone 20 mg tablet 60 mg (3 x 20 mg) PO DAILY 3 days 05/22/22 #9 tabs salicylic acid 28.5 % topical 1 appl topical DAILY #10 mL 06/29/24 film-forming soln extend release w/appl Allergies Allergy/AdvReac Type Severity Reaction Status Date / Time nut - unspecified [NUTS] Allergy Unknown WHEEZES Verified 06/29/24 10:55 DAIRY PRODUCTS Allergy Unknown WHEEZES Uncoded 06/29/24 10:55 SEASONAL ALLERGIES Allergy Unknown DIFFICULTY Uncoded 06/29/24 10:55 BREATHING Review of Systems 2 Review of Systems: As per HPI. Yes all other systems are reviewed and are negative Constitutional: Constitutional: Reports as per HPI [facility] Past Medical History Medical History Anxiety Asthma Barretts esophagus Depression Environmental allergies GERD (gastroesophageal reflux disease) Post traumatic stress disorder (PTSD) Seasonal allergies Surgical History Hx of colonoscopy Hx of esophagogastroduodenoscopy Hx of tonsillectomy Social History Social History Alcohol intake: never Patient Tobacco Use Status: Never used Tobacco Advance Directives: No Advance Directives Information Provided: Yes Do you have a plan to hurt others: No Plan Current occupational status: retired Current occupation: rt hand Physical Exam ED Vital Signs: Vital Signs - 24 hr 06/29/24 10:54 Temperature 98.2 F Pulse Rate 85 Respiratory Rate 16 Blood Pressure 0/0 L Pulse Oximetry 100 Oxygen Delivery Method Room Air BMI result Body Mass Index 27.5 Vital signs have been reviewed and appear to be correct. Patient refusing blood pressure. Heart rate normal. Respiratory rate normal. Temperature normal. Oxygen saturation normal. Const General: healthy appearing and no acute distress Orientation/consciousness: oriented to person, oriented to place, oriented to time and patient oriented x3 Limitations: no limitations HENMT Head: Yes normocephalic and Yes atraumatic Ears: external ears normal General nose exam: Normal external nose present Face and sinus: Yes face symmetric Mouth: oropharynx normal and moist mucous membranes Throat: Yes uvula midline Eyes Pupils: Equal, round and reactive pupils present Neck Neck: Yes normal visual inspection and Yes supple Resp Effort & Inspection: normal respiratory effort and able to speak in complete sentences Auscultation: clear to auscultation bilaterally Cardio Rate: regular rate Rhythm: regular rhythm Heart sounds: S1 normal heart sound present and S2 normal heart sound present Skin General skin exam: elasticity normal and turgor normal Neuro General: oriented to person, oriented to place, oriented to time, patient oriented x3, moves all extremities, no focal motor deficits and CN's II-XI intact bilaterally Cranial nerves: Yes Equal, round and reactive pupils present Cognition (Neuro): normal cognition Extrem General: Yes full ROM, Yes no pedal edema and Yes no calf tenderness Ankle/foot/toe images: 2 1. 2cm diameter callous with several 1mm hyperkeratotic papules Psych Mental Status: mental status grossly normal Affect: normal affect Thought process: Normal thought process present Medical Decision Making Medical Decision Making MDM Narrative: Patient is a 63-year-old male with history of PTSD, anxiety, GERD, asthma, Barretts esophagus presenting to the emergency department with complaint of pain to plantar surface of right foot for the past week. On exam patient is awake, A+Ox3, refusing blood pressure check, VS otherwise WNL, afebrile, normal neurological exam without focal deficits, physical exam findings as above. Given reported symptoms and physical exam findings, initial differential includes plantar wart, callous, foreign body, corn. Patient stating that he has to leave prior to results of x-ray. No obvious foreign body on my review. Radiologist's interpretation not yet resulted. Patient offered pain medication in the ED which he declined, stating that he has minimal pain at this time. Patient updated on results and all questions answered. Discussed with patient that first line treatment is over the counter salicylic acid between 17-40%. Patient specifically requesting a prescription, prescription sent to pharmacy. * The patient has decided to leave against medical advice because he needs to catch bus at a certain time. * They have normal mental status and adequate capacity to make medical decisions. * The risks have been explained to the patient, including infection, worsening illness, chronic pain, permanent disability and . * The patient was able to understand and state the risks and benefits of remaining in the ED for full evaluation. This was witnessed by nurse Mahogany, O[employer] SERVICES SUPERVISOR student Kasie, and me. * They had the opportunity to ask questions about their medical condition. * The patient was treated to the extent that they would allow and knows that they may return for care at any time. Differential Diagnosis Differential Diagnoses: The differential diagnosis associated with the presentation includes As per [facility] Independent Interpretation I performed an independent interpretation of an: Plain X-Ray Interpretation: No visible foreign body on my review of xray right foot. External Record Review External record reviewed: Inpatient record, Office record and Outpatient record Prescription Management I considered prescription management with: Other Discharge Plan Discharge Clinical Impression: Plantar wart of right foot Patient Disposition: Left Against Medical Advice Instructions: Plantar Wart (ED) Additional Instructions: You were evaluated in the emergency department today for right foot pain. You chose to leave against medical advice prior to your x-ray being read by the radiologist. Your physical exam findings are consistent with a plantar wart of your foot. The treatment for this is topical salicylic treatment. The salicyclic acid should be at least 17% strength up to 40% strength. Apply this directly to the wart once per day, skin should be dry before application. Repeat this treatment for up to 12 weeks. If symptoms have not resolved after 12 weeks, follow up with your primary care provider or brass sorter. Return to the emergency department if you develop redness, swelling, thick yellow drainage, fever or any other concerning symptoms. Prescriptions: New salicylic acid 28.5 % film-forming soln ER w/ appl 1 appl topical DAILY Qty: 10 0RF Rx Instructions: apply to entire wart site; allow to dry; repeat application No Action fluticasone propion-salmeterol [Advair Diskus] 250-50 mcg/dose blister with device 1 inh inhalation BID oxcarbazepine 150 mg tablet PO risperidone 3 mg tablet 2 tab PO BEDTIME lorazepam 0.5 mg tablet 1 tab PO DAILY PRN (Reason: Anxiety) omeprazole 20 mg capsule,delayed release(DR/EC) 1 cap PO QAM zolpidem 10 mg tablet 1 tab PO BEDTIME PRN (Reason: Insomnia) escitalopram oxalate 20 mg tablet 1 tab PO DAILY escitalopram oxalate 10 mg tablet 10 mg PO DAILY cetirizine 10 mg tablet 10 mg PO DAILY PRN (Reason: Itch, rash) Qty: 14 0RF prednisone 20 mg tablet 60 mg PO DAILY 3 Days Qty: 9 0RF albuterol sulfate 90 mcg/actuation HFA aerosol inhaler 0 mcg inhalation methylprednisolone 4 mg tablets,dose pack PO DIRECTED Stand Alone Forms: Against Medical Advice Print Language: Kiswahili
--- NOTE | 2024-06-29 11:56 | PC.NURSE ---
Pt refused BP.
--- OUTSIDE RECORDS SUMMARY | 2024-06-29 12:17 | XMS_ITS | Continuity of Care Document ---
Author Organization [facility] Address [address] [place] [id number]- Care Team Providers Care Pbx Teacher Name Role Phone Mart COOPER, Jesus Maurer Primary Care Physician [facility]counter [facility] Date(s): 07/11/23 - 08/10/23 [facility] [address] [place] [id number] Allergies, Adverse Reactions, Alerts No Known Allergies Immunizations Given and Recorded Vaccine Date Status Refusal Reason zoster vaccine, inactivated 08/19/20 Recorded influenza virus vaccine, inactivated 08/19/20 Dae rded tetanus/diphtheria/pertussis, acel(Tdap) 01/10/15 Recorded Influenza Virus Vaccine (oldterm) 08/24/06 Recorde d Medications Advair Diskus 250 mcg-50 mcg inhalation powder 1, Doses, Inhalation, 2 times a day, # 60 each, Refills 1, Tot. Refills 1, Maintenance, 03/04/23 9:41:00 EDT, Route to Pharmacy Electronically, [id number], [facility], 188, cm, 07/25/21 10:37:00 EST, Height Start Date: 03/04/23 Status: Ordered Albuterol (Eqv-Ventolin HFA) 90 mcg/inh inhalation aerosol 2 puffs, Inhalation, Every 4 hours, PRN Wheezing/Shortness of Breath, # 8 Gm, 3 Refills, Maintenance, 02/19/23 11:06:00 EDT, [facility], 2 puffs Inhalation Every 4 hours,PRN:Wheezing/Shortness of Breath, 188, cm, 07/25/21 10:37:00 EST, Height Start Date: 02/19/23 Status: Ordered B-Complex 50 By Mouth, Daily, 0 Refills, Maintenance, 07/05/23 10:48:00 EDT, Partial fill upon patient request if the prescription is for a schedule II opioid drug. Start Date: 07/05/23 Status: Ordered escitalopram 20 mg oral tablet 1 tablet = 20 mg, By Mouth, Daily, # 30 tablet, 0 Refills, Maintenance, 07/05/23 10:47:00 EDT, Tablet, Partial fill upon patient request if the prescription is for a schedule II opioid drug. Start Date: 07/05/23 Status: Ordered Fish Oil By Mouth, 0 Refills, Maintenance, 07/05/23 10:49:00 EDT, Partial fill upon patient request if the prescription is for a schedule II opioid drug. Start Date: 07/05/23 Status: Ordered Medrol Dosepak 4 mg oral tablet 1 pack/packet, By Mouth, Once, # 21 tablet, 0 Refills, Soft Stop, 06/12/22 17:27:00 EDT, Tablet, [facility], Partial fill upon patient request if the prescription is for a schedule II opioid drug., 188, cm, 07/25/21 10:37:00 EST, Height Start Date: 06/12/22 Status: Ordered Melatonin 0 Refills, Maintenance, 07/05/23 10:49:00 EDT, Partial fill upon patient request if the prescription is for a schedule II opioid drug. Start Date: 07/05/23 Status: Ordered Vitamin C By Mouth, Daily, 0 Refills, Maintenance, 07/05/23 10:47:00 EDT, Partial fill upon patient request if the prescription is for a schedule II opioid drug. Start Date: 07/05/23 Status: Ordered Vitamin D3 5000 intl units oral capsule 1 capsule = 125 mcg, By Mouth, Daily, with food, # 100 capsule, 0 Refills, Maintenance, 07/05/23 10:49:00 EDT, Capsule, Partial fill upon patient request if the prescription is for a schedule II opioid drug. Start Date: 07/05/23 Status: Ordered Vitamin K2 = 100 mcg, By Mouth, Daily, 0 Refills, Maintenance, 07/05/23 10:49:00 EDT, Partial fill upon patient request if the prescription is for a schedule II opioid drug. Start Date: 07/05/23 Status: Ordered Zinc = 140 mg, By Mouth, Daily, 0 Refills, Maintenance, 07/05/23 10:48:00 EDT, Partial fill upon patientrequest if the prescription is for a schedule II opioid drug. Start Date: 07/05/23 Status: Ordered zolpidem 10 mg oral tablet 1 tablet = 10 mg, By Mouth, Daily at bedtime, PRN as needed for insomnia, 0 Refills, Maintenance, 07/05/23 10:47:00 EDT, Tablet, Partial fill upon patient request if the prescription is for a schedule II opioid drug. Start Date: 07/05/23 Status: Ordered Problem List Condition Confirmation Course Effective Dates Status Health St atus Informant History of traumatic head injury Confirmed Active Headache Confirmed Active Insomnia Confirmed Active Plantar fasciitis, left Confirmed Active Social History Social History Type Response Smoking Status Former smoker, quit more than 30 days ago; Stopped at age: 55; entered on: 12/30/19 Sex Male Patient Care team information Care Team Personnel Name: Mart COOPER, Jesus Maurer Position: [facility] Physician - Primary Care Member Role: PCP Address: Address: [address] [place] [id number]- Care Team Related Persons Name: COLTON CLEVELAND Address: home [address] [place] [address] Name: KINGS ARMENDARIZ Address: home [address] [place] [address]
--- OUTSIDE RECORDS SUMMARY | 2024-06-29 12:17 | XMS_ITS | Continuity of Care Document ---
Author Organization [facility] Adult Address [address] [place] [address]- Care Team Providers Care Mop Maker Name Role Phone Mart COOPER, Jesus Maurer Primary Care Physician [phone] Encounter [facility] Date(s): 01/25/23 - 02/24/23 [facility] [address] [place] [address]- Allergies, Adverse Reactions, Alerts No Known Allergies Immunizations Given and Recorded Vaccine Date Status Refusal Reason tetanus/diphtheria/pertussis, acel(Tdap) 01/10/15 Recorded Influenza Virus Vaccine (oldterm) 08/24/06 Recorde d Medications Advair Diskus 250 mcg-50 mcg inhalation powder 1, Doses, Inhalation, 2 times a day, # 60 each, Refills 0, Maintenance, 11/06/22 6:58:00 EST, [facility] Electronically, [id number], [facility], 188, cm, 07/25/21 10:37:00 EST, Height Start Date: 11/06/22 Status: Ordered Albuterol (Eqv-Ventolin HFA) 90 mcg/inh inhalation aerosol 2 puffs, Inhalation, Every 4 hours, PRN Wheezing/Shortness of Breath, # 8 Gm, 3 Refills, Maintenance, 02/19/23 11:06:00 EDT, [facility], 2 puffs Inhalation Every 4 hours,PRN:Wheezing/Shortness of Breath, 188, cm, 07/25/21 10:37:00 EST, Height Start Date: 02/19/23 Status: Ordered Azithromycin 5 Day Dose Pack [...] EST, Height Start Date: 06/12/22 Status: Ordered Problem List Condition Confirmation Course Effective Dates Status Health St at Informant History of traumatic head injury Confirmed Active Insomnia Confirmed Active Social History Social History Type Response Smoking Status Former smoker, quit more than 30 days ago; Stopped at age: 55; entered on: 12/30/19 Sex Male Patient Care team information Care Team Personnel Name: Mart COOPER, Jesus Maruer Position: [facility] Physician - Primary Care Member Role: PCP Address: Address: [address] [place] [address]- Care Team Related Persons Name: COLTON CLEVELAND Address: home [address] [place] [address] Name: KINGS ARMENDARIZ Address: home [address] [place] [address]
--- OUTSIDE RECORDS SUMMARY | 2024-06-29 12:17 | XMS_ITS | Continuity of Care Document ---
Author Organization [facility] Adult Address [address] [place] [address]- Care Team Providers Care Cesspool Cleaner Name Role Phone Mart COOPER, Jesus Maurer Primary Care Physician [phone] Encounter [facility] Date(s): 02/22/23 - 03/24/23 [facility] [address] [place] [address]- Allergies, Adverse Reactions, Alerts No Known Allergies Immunizations Given and Recorded Vaccine Date Status Refusal Reason tetanus/diphtheria/pertussis, acel(Tdap) 01/10/15 Recorded Influenza Virus Vaccine (oldterm) 08/24/06 Recorde d Medications Advair Diskus 250 mcg-50 mcg inhalation powder 1, Doses, Inhalation, 2 times a day, # 60 each, Refills 1, Tot. Refills 1, Maintenance, 03/04/23 9:41:00 EDT, Route to Pharmacy Electronically, [id number], [facility], 188, cm, 07/25/21 10:37:00 EST, Height Start Date: 03/04/23 Status: Ordered Albuterol (Eqv-Ventolin HFA) 90 mcg/inh inhalation aerosol 2 puffs, Inhalation, Every 4 hours, PRN Wheezing/Shortness of Breath, # 8 Gm, 3 Refills, Maintenance, 02/19/23 11:06:00 EDT, [facility], 2 puffs Inhalation Every 4 hours,PRN:Wheezing/Shortness of Breath, 188, cm, 07/25/21 10:37:00 EST, Height Start Date: 02/19/23 Status: Ordered Medrol Dosepak 4 mg oral tablet 1 pack/packet, By Mouth, Once, # 21 tablet, 0 Refills, Soft Stop, 06/12/22 17:27:00 EDT, Tablet, [facility], Partial fill upon patient request if the prescription is for a schedule II opioid drug., 188, cm, 07/25/21 10:37:00 EST, Height Start Date: 06/12/22 Status: Ordered Problem List Condition Confirmation Course Effective Dates Status Health St atus Informant History of traumatic head injury Confirmed Active Insomnia Confirmed Active Plantar fasciitis, left Confirmed Active Social History Social History Type Response Smoking Status Former smoker, quit more than 30 days ago; Stopped at age: 55; entered on: 12/30/19 Sex Male Patient Care team information Care Team Personnel Name: Mart COOPER, Jesus Maurer Position: S Physician - Primary Care Member Role: PCP Address: Address: [address] [place] [id number]- Care Team Related Persons Name: COLTON CLEVELAND Address: home [address] [place] [address] Name: KINGS ARMENDARIZ Address: home [address] [place] [address]
--- OUTSIDE RECORDS SUMMARY | 2024-06-29 12:18 | XMS_ITS | Continuity of Care Document ---
Author Organization [facility] Dmitry Keron Address [address] [place] [address]- Care Team Providers Care Dental Amalgam Processor Name Role Phone Mart COOPER, Jesus Maurer Primary Care Physician [phone] Encounter [facility] Date(s): 04/16/23 - 05/16/23 [facility] [address] [place] [address]- Allergies, Adverse Reactions, Alerts No Known Allergies Immunizations Given and Recorded Vaccine Date Status Refusal Reason tetanus/diphtheria/pertussis, acel(Tdap) 01/10/15 Recorded Influenza Virus Vaccine (oldterm) 08/24/06 Recorde d Medications Advair Diskus 250 mcg-50 mcg inhalation powder 1, Doses, Inhalation, 2 times a day, # 60 each, Refills 1, Tot. Refills 1, Maintenance, 03/04/23 9:41:00 EDT, Route to Pharmacy Electronically, [id number], [facility], 188, cm, 07/25/21 10:37:00 EST, Height Start Date: 03/04/23 Status: Ordered Albuterol (Eqv-Ventolin HFA) 90 mcg/inh inhalation aerosol 2 puffs, Inhalation, Every 4 hours, PRN Wheezing/Shortness of Breath, # 8 Gm, 3 Refills, Maintenance, 02/19/23 11:06:00 EDT, [facility], 2 puffs Inhalation Every 4 hours,PRN:Wheezing/Shortness of Breath, 188, cm, 07/25/21 10:37:00 EST, Height Start Date: 02/19/23 Status: Ordered Medrol Dosepak 4 mg oral tablet 1 pack/packet, By Mouth, Once, # 21 tablet, 0 Refills, Soft Stop, 06/12/22 17:27:00 EDT, Tablet, [facility], Partial fill upon patient request if the [...] Primary Care Member Role: PCP Address: Address: [address] [place] [id number]- Care Team Related Persons Name: COLTON CLEVELAND Address: home [address] [place] [address] Name: KINGS ARMENDARIZ Address: home [address] [place] [address]
--- NOTE | 2024-06-29 12:49 | PC.NURSE ---
PT wants to leave AMA, this nurse and provider aware. PT aware of the risks of leaving AMA, pt verbalizes understanding of risks of leaving AMA.
--- NOTE | 2024-06-29 13:10 | PC.NURSE ---
PT trying to walk out without signing AMA form, Pt made aware he has to sign AMA form patient said he's been waiting to long for AMA form, provider was typing up note and paperwork while patient was trying to walk out, pt brought back to his room brought AMA paperwork verbalizes understanding of risks and signed forms.
[2024-06-29 13:12] VITALS: BP 0/0; PULSE 85; RESP 16; TEMP 36.8; O2SAT 100
== END 2024-06-29 13:12 | disposition left against medical advice (07) ==
PROVIDERS: Emergency Provider Emergency Medicine; PCP Internal Medicine
DX: B07.0 Plantar wart (principal); M79.671 Pain in right foot; J45.909 Unspecified asthma, uncomplicated; Z79.899 Other long term (current) drug therapy
CPT/HCPCS: 73630; 99283

== ENCOUNTER 2024-08-05 13:21 | Outpatient (REF) | payer MEDICARE, MEDICAID, SELFPAY ==
--- NOTE | ~2024-08-05 | XR_ITS ---
EXAMINATION: XR CHEST CLINICAL INFORMATION: COUGH,CHRONIC OBSTRUCTIVE PULMONARY DISEASE COMPARISON: Chest x-ray on 10/04/2017 TECHNIQUE: 2 views of the chest were obtained. FINDINGS: No significant abnormality is noted involving the heart, lungs, mediastinum, bony thorax or soft tissues. XR/XR chest 2V IMPRESSION: Unremarkable examination. Electronically signed by: Helen Gill MD 08/06/2024 10:19 AM [facility]
== END 2024-08-05 13:22 | disposition home or self-care (01) ==
LOC: HO.XRAY 13:21
PROVIDERS: Visit Provider Internal Medicine
DX: J44.89 Other specified chronic obstructive pulmonary disease (principal)
CPT/HCPCS: 71046

== ENCOUNTER 2024-11-05 18:20 | Emergency (ER) | payer MEDICARE, MEDICAID, SELFPAY ==
--- NOTE | ~2024-11-05 | XR_ITS ---
CLINICAL HISTORY: Pneumonia? 1 view chest x-ray. Comparison: 08/05/2024 Findings: The lungs are adequately expanded. No focal consolidation. No effusion or pneumothorax. Cardiac and mediastinal contours are within normal limits. No acute osseous abnormality Impression: No acute process. This document has been electronically signed by: Gildardo Nixon MD on 11/05/2024 19:12:29
[2024-11-05 18:33] VITALS: PULSE 125; RESP 24; TEMP 36.6; O2SAT 96; BMI 27.6
--- NOTE | 2024-11-05 18:37 | PC.NURSE ---
declined BP- stating he is not allowing for BP to obtained because it will be artificially high he has white coat syndrome
--- NOTE | 2024-11-05 18:41 | ECG_ITS ---
Test Reason : SOB Blood Pressure : */* mmHG Vent. Rate : 126 BPM Atrial Rate : 126 BPM P-R Int : 128 ms QRS Dur : 124 ms QT Int : 330 ms P-R-T Axes : 81 86 52 degrees QTcB Int : 477 ms Sinus tachycardia Biatrial enlargement Right bundle branch block Abnormal ECG No previous ECGs available Referred By: Mick Mack Electronically Signed By: Kevin Bah
--- NOTE | 2024-11-05 18:43 | ED_ITS ---
HPI - General Adult General Chief complaint: Dyspnea Stated complaint: SOB, Wheezing, stuffy nose, Sneezing, tightness ch Time Seen by Provider: 11/05/24 19:06 Source: patient Mode of arrival: ambulatory Limitations: no limitations History of Present Illness ED Provider: Saundra WEINSTEIN narrative: 64-year-old male with past medical history of asthma presenting for URI symptoms. Patient states that he has been experiencing cough, shortness of breath, wheezing and fatigue since Saturday. He denies chest pain, nausea, vomiting, diarrhea. He denies sick contacts and has not had any recent travel. He denies history of blood clots and has not had any lower extremity swelling or pain Related Data Home Medications ?Medication ?Instructions ?Recorded ?Confirmed escitalopram oxalate 20 mg tablet 1 tab PO DAILY 06/08/20 06/08/20 fluticasone 250 mcg-salmeterol 50 1 inh inhalation BID 06/08/20 06/10/20 mcg/dose blistr powdr for inhalation (Advair Diskus) lorazepam 0.5 mg tablet 1 tab PO DAILY PRN Anxiety 06/08/20 06/08/20 omeprazole 20 mg capsule,delayed 1 cap PO QAM 06/08/20 06/08/20 release oxcarbazepine 150 mg tablet PO 06/08/20 risperidone 3 mg tablet 2 tab PO BEDTIME 06/08/20 06/08/20 zolpidem 10 mg tablet 1 tab PO BEDTIME PRN Insomnia 06/08/20 06/08/20 escitalopram oxalate 10 mg tablet 10 mg PO DAILY 06/10/20 06/10/20 albuterol sulfate 90 mcg/actuation 0 mcg inhalation 06/28/22 aerosol inhaler methylprednisolone 4 mg tablets in mg PO DIRECTED 06/28/22 a dose pack Previous Rx's ?Medication ?Instructions ?Recorded cetirizine 10 mg tablet 10 mg PO DAILY PRN Itch, rash #14 05/22/22 tabs prednisone 20 mg tablet 60 mg (3 x 20 mg) PO DAILY 3 days 05/22/22 #9 tabs salicylic acid 28.5 % topical 1 appl topical DAILY #10 mL 06/29/24 film-forming soln extend release w/appl prednisone 20 mg tablet 40 mg (2 x 20 mg) PO DAILY 4 days 11/05/24 #8 tabs Allergies Allergy/AdvReac Type Severity Reaction Status Date / Time nut - unspecified [NUTS] Allergy Unknown WHEEZES Verified 11/05/24 18:34 DAIRY PRODUCTS Allergy Unknown WHEEZES Uncoded 11/05/24 18:34 SEASONAL ALLERGIES Allergy Unknown DIFFICULTY Uncoded 11/05/24 18:34 BREATHING Review of Systems 2 Review of Systems: Yes all other systems are reviewed and are negative [facility] Past Medical History Attestation statement: The following information was validated with the patient. [facility] Narrative: Asthma Medical History Environmental allergies Seasonal allergies Asthma Barretts esophagus GERD (gastroesophageal reflux disease) Depression Anxiety Post traumatic stress disorder (PTSD) Surgical History Hx of tonsillectomy Hx of colonoscopy Hx of esophagogastroduodenoscopy Social History Social History Alcohol intake: never Patient Tobacco Use Status: Never used Tobacco Smoked in Last 30 Days: No Use of substances other than those prescribed or required for medical reasons: No Advance Directives: No Advance Directives Information Provided: Yes Current occupational status: retired Current occupation: rt hand Physical Exam ED Vital Signs: Vital Signs - 24 hr 11/05/24 18:33 11/05/24 19:25 11/05/24 20:12 Temperature 97.9 F 100.6 F H Pulse Rate 125 H 112 H 128 H Respiratory Rate 24 H 20 13 Blood Pressure 134/80 Pulse Oximetry 96 96 Oxygen Delivery Method Room Air Room Air 11/05/24 22:12 11/05/24 22:50 Temperature 98.1 F 98.1 F Pulse Rate 109 H 109 H Respiratory Rate 16 16 Blood Pressure 159/88 H 159/88 H Pulse Oximetry 96 96 Oxygen Delivery Method Room Air Room Air BMI result Body Mass Index 27.6 Well-appearing male in no acute distress Alert and oriented x4; walking with steady gait; normal speech and cognition Bilateral wheezing with good aeration auscultated Normal S1-S2 tachycardic Abdomen is soft nontender nondistended No lower extremity edema appreciated Course Course Course Narrative: RME: 64-year-old male presents to ED for shortness of breath coughing chest tightness in the wheezing for past couple of days. Logs positive for wheezing. Patient refused to get blood pressure checked. ED bronchodilators ordered. Medications Administered Discontinued Medications Generic Name Dose Route Start Last Admin Trade Name Rehana PRN Reason Stop Dose Admin Acetaminophen 975 mg 11/05/24 20:20 11/05/24 20:28 Acetaminophen 325 Mg Tablet PO 11/05/24 20:21 975 mg ONCE ONE Administration Albuterol Sulfate 5 mg/ 0 mg 11/05/24 19:42 11/05/24 19:46 Albuterol/Ipratropium 3 ml INHALE 11/05/24 19:43 1 each ONCE ONE Administration Sodium Chloride 1,000 mls @ 999 mls/hr 11/05/24 20:15 11/05/24 20:28 Ns IV 11/05/24 21:15 999 mls/hr .Q1H1M SILVIA Administration Methylprednisolone Sodium Succinate 125 mg 11/05/24 19:21 11/05/24 19:27 Methylprednisolone Sod Succ 125 Mg/2 Ml Vial IVPUSH 11/05/24 19:22 125 mg ONCE ONE Administration Medical Decision Making Medical Decision Making MDM Narrative: 64-year-old male presenting for URI symptoms -I am concerned for the following; viral URI, COVID, flu, pneumonia, asthma exacerbation -labs, fluids and imaging studies ordered Lab and imaging interpretation -normal white count, stable H&H, electrolytes within normal limits -mild elevation LFTs and T bili -troponin of 19.7 -influenza a positive -sinus tachycardia on EKG 8:23pm patient febrile to 100.6; Tylenol ordered I was notified by nursing staff that patient pulled out his IV and is requesting to go home. Explained to patient that his workup isn't complete and that he is still tachycardic and I am considering ruling out ACS and PE however patient does not want to stay for additional testing. I explained the risk of missing these diagnoses which include permanent disability and which he stated he understands however he needs to get home because he does not drive and has a friend that is pick him up. He is adamant that he feels much better and is ready to go home. I told him to follow up with his PCP and requests cardiology referral. I also recommended he repeat lab work in 48 hours to evaluate LFTs Patient discharged Lab Data 11/05/24 19:11 11/05/24 19:11 Labs: Lab Results 11/05/24 Range/Units 19:11 WBC 7.0 (4.8-10.8) X10*3/uL RBC 5.37 (4.60-5.80) X10*6/uL Hgb 16.8 (14.0-18.0) g/dl Hct 46.6 (42.0-52.0) % MCV 86.8 (80.0-98.0) fL MCH 31.3 (27.0-33.0) pg MCHC 36.1 H (31.0-36.0) g/dl RDW 13.0 (11.0-16.0) % Plt Count 222 D (160-400) X10*3/uL MPV 9.1 L (9.4-12.4) fL Immature Gran % (Auto) 0.3 (0.0-0.4) % Neut % (Auto) 74.0 H (45-73) % Lymph % (Auto) 10.9 L (20-40) % [place] % (Auto) 13.4 H (2-11) % Eos % (Auto) 1.0 (0-4) % Baso % (Auto) 0.4 (0-2) % Lymph # (Auto) 0.8 L (1.2-4.9) X10*3/uL [place] # (Auto) 0.9 (0.1-1.2) X10*3/uL Eos # (Auto) 0.1 (0.0-0.4) X10*3/uL Baso # (Auto) 0.0 (0.0-0.2) X10*3/uL Abs Immat Gran (auto) 0.02 (0.00-0.03) X10*3/uL Absolute Neuts (auto) 5.2 (2.0-8.3) x10*3/uL Absolute Nucleated RBC 0.000 (0.0-0.012) X10*3/uL Nucleated RBC % (auto) 0.0 (0.0-0.2) /100WBC PT 11.0 (10.9-12.4) SEC INR 0.9 (0.9-1.1) APTT 40.9 H (26.0-36.8) SEC Sodium 134 L (135-145) mmol/L Potassium 4.3 (3.3-5.1) mmol/L Chloride 101 (96-108) mmol/L Carbon Dioxide 22 (22-29) mmol/L Anion Gap 15 (12-20) BUN 14 (9-16) mg/dL Creatinine 0.91 (0.5-1.4) mg/dL Estim Creat Clear Calc 96.7 Estimated GFR > 60 Random Glucose 104 (60-115) mg/dL Calcium 9.5 (8.4-10.2) mg/dL Total Bilirubin 1.6 H (0.0-1.0) mg/dL AST 40 H (5-37) U/L ALT 59 H (0-40) U/L Alkaline Phosphatase 92 (39-117) U/L Troponin I High Sens 19.7 (<3.5-35.0) ng/L B-Natriuretic Peptide 15 (<100) pg/mL Total Protein 7.5 (6.5-8.0) g/dL Albumin 4.5 (3.5-5.0) g/dL Influenza Type A (PCR) POSITIVE A (Negative) Influenza Type B (PCR) NEGATIVE (Negative) RSV RNA Qual (PCR) NEGATIVE (Negative) SARS-CoV-2 RNA (RT-PCR) NEGATIVE (Negative) Discharge Plan Discharge Clinical Impression: Flu, Asthma exacerbation, Elevated LFTs Patient Disposition: Home, Self-Care Instructions: Asthma (DC) Additional Instructions: Please picker and sorter load and unload your new prescription take as instructed. Please follow up with the primary care provider in the next 24-48 hours for reassessment. You should have repeat lab work performed. If you develop any new or worsening symptoms please return to the emergency department You should schedule an appointment with a cylinder grinder for cardiac evaluation Prescriptions: New prednisone 20 mg tablet 40 mg PO DAILY 4 Days Qty: 8 0RF No Action fluticasone propion-salmeterol [Advair Diskus] 250-50 mcg/dose blister with device 1 inh inhalation BID oxcarbazepine 150 mg tablet PO risperidone 3 mg tablet 2 tab PO BEDTIME lorazepam 0.5 mg tablet 1 tab PO DAILY PRN (Reason: Anxiety) omeprazole 20 mg capsule,delayed release(DR/EC) 1 cap PO QAM zolpidem 10 mg tablet 1 tab PO BEDTIME PRN (Reason: Insomnia) escitalopram oxalate 20 mg tablet 1 tab PO DAILY escitalopram oxalate 10 mg tablet 10 mg PO DAILY cetirizine 10 mg tablet 10 mg PO DAILY PRN (Reason: Itch, rash) Qty: 14 0RF prednisone 20 mg tablet 60 mg PO DAILY 3 Days Qty: 9 0RF salicylic acid 28.5 % film-forming soln ER w/ appl 1 appl topical DAILY Qty: 10 0RF Rx Instructions: apply to entire wart site; allow to dry; repeat application albuterol sulfate 90 mcg/actuation HFA aerosol inhaler 0 mcg inhalation methylprednisolone 4 mg tablets,dose pack PO DIRECTED Interventions: ED Discharge Assessment Last Done: 11/05/24 22:50 Discharge Date/Time: 11/05/24 22:50 Print Language: Pashto
[2024-11-05 19:16] LABS: MANUAL DIFF FLAG NO
[2024-11-05 19:18] LABS: Basophils Percent Auto 0.4 % (0-2); Eosinophils Absolute Auto 0.1 X10*3/uL (0.0-0.4); Hematocrit 46.6 % (42.0-52.0); Hemoglobin 16.8 g/dl (14.0-18.0); Imm Gran Abs Auto 0.02 X10*3/uL (0.00-0.03); Imm Gran Pct Auto 0.3 % (0.0-0.4); Lymphocytes Absolute Auto 0.8 X10*3/uL (1.2-4.9); Lymphocytes Percent Auto 10.9 % (20-40); Mean Corpuscular HGB Conc 36.1 g/dl (31.0-36.0); Mean Corpuscular Hemoglobin 31.3 pg (27.0-33.0); Mean Corpuscular Volume 86.8 fL (80.0-98.0); Mean Platelet Volume 9.1 fL (9.4-12.4); Monocytes Absolute Auto 0.9 X10*3/uL (0.1-1.2); Monocytes Percent Auto 13.4 % (2-11); Neutrophils Absolute Auto 5.2 x10*3/uL (2.0-8.3); Platelet Count 222 X10*3/uL (160-400); Red Blood Count 5.37 X10*6/uL (4.60-5.80)
[2024-11-05 19:23] LABS: INTERNATIONAL NORM RATIO 0.9 (0.9-1.1)
[2024-11-05 19:25] VITALS: PULSE 112; RESP 20; O2SAT 95
[2024-11-05 19:25] LABS: Partial Thromboplastin Time 40.9 SEC (26.0-36.8)
[2024-11-05] MEDS: methylPREDNISolone Sod Succ 125 MG/2 ML VIAL IVPUSH (19:27)
[2024-11-05 19:35] LABS: Alanine Aminotransferase 59 U/L (0-40); Albumin Level 4.5 g/dL (3.5-5.0); Alkaline Phosphatase 92 U/L (39-117); Anion Gap 15 (12-20); Aspartate Amino Transferase 40 U/L (5-37); Bilirubin Total 1.6 mg/dL (0.0-1.0); Blood Urea Nitrogen 14 mg/dL (9-16); Calcium 9.5 mg/dL (8.4-10.2); Carbon Dioxide 22 mmol/L (22-29); Chloride 101 mmol/L (96-108); Creatinine Clr Calc Pharmacy 96.7; Estimated Glomerular Filt Rate > 60; Glucose Random 104 mg/dL (60-115); Potassium 4.3 mmol/L (3.3-5.1); Sodium 134 mmol/L (135-145); Total Protein 7.5 g/dL (6.5-8.0)
[2024-11-05 19:40] LABS: B Type Natriuretic Peptide 15 pg/mL (<100)
[2024-11-05 19:42] LABS: Troponin-I High Sensitivity 19.7 ng/L (<3.5-35.0)
[2024-11-05] MEDS: Albuterol Sulfate 5 MG, Albuterol/Iprat 2.5/0.5MG 3 ML 3 ML INHALE (19:46)
--- OUTSIDE RECORDS SUMMARY | 2024-11-05 19:53 | XMS_ITS | Data Portability ---
Author Organization [facility], [facility] Address [address] [place] [address] Care Team Providers Care Waiter/Waitress Dining Car Name Role Phone CHARLI COOPER Referring Provider Assessment Encounter Date Assessment Date Assessment LastModified by Organization Details LastModified Time 09/11/2024 09/11/2024 Assessment: Patient demonstrates good yovani for rx today. Plan: Continue to progress pt as yovani. [email or web address] Not available 09/11/2024 11:19:39 09/14/2024 09/14/2024 Assessment: Patient demonstrates good yovani for rx today-review of putting sock on with sock aid. Plan: Continue to progress pt as yovani. [email or web address] Not available 09/14/2024 13:29:33 09/17/2024 09/17/2024 Assessment: Patient demonstrates good yovani for rx today-review of putting sock on with sock aid. Plan: Continue to progress pt as yovani. [email or web address] Not available 09/16/2024 20:06:18 10/09/2024 10/09/2024 History of present illness: The patient is presenting status post left total hip arthroplasty performed on 08-25-24. Currently, he is doing well. His pain is well-controlled. He denies fevers, chills, night sweats, wound breakdown, or drainage. Physical examination: The patient is in no acute distress. He is alert and oriented x3. He has nonlabored breathing. His hearing is intact to spoken word. His extra-ocular motion is intact. Left lower extremity - Surgical incision is well healed. There is no erythema, induration, or fluctuance. He tolerates gentle internal and external rotation of the hip while seated and axial loading of the lower extremity without significant pain. Sensation is intact to light touch over the dorsum of the foot, in the first webspace, and over the plantar aspect of the foot. The patient has 5/5 strength with plantarflexion of the ankle, dorsiflexion of the ankle, plantarflexion of the great toe, and dorsiflexion of the great toe. The foot is warm and well-perfused with brisk capillary refill. Radiographs: 2 views of the left hip including low AP pelvis and left leg frog leg lateral radiographs were obtained and evaluated in the office today. X-rays demonstrate that the patient is status post left total hip arthroplasty. The implants appear to be in good overall alignment. There is no evidence of loosening or fracture. There is no evidence of stem subsidence or component migration. There is no evidence of eccentric polyethylene wear. Assessment and Plan: The patient is status post left total hip arthroplasty. Currently, he is doing well. His pain is well controlled. The patient can continue activities as tolerated. The patient was instructed to contact the office prior to any dental work, including routine cleanings, so that they may be prescribed prophylactic antibiotics to be taken 1 hour before their dental appointment. The patient will follow up with me in 1 year for routine surveillance status post total hip arthroplasty or any time the patient has an issue with their total hip arthroplasty. [email or web address] Not available 10/11/2024 17:35:52 Plan of Treatment Reminders Order Date Submit Date Provider Last Modified By Organization Details Last Modified Time Details Appointments RECHECK 15 2024 11:15A Fatuma Callaway MD Not available Not available Not available Lab None recorded . Referral None recorded . Procedures None recorded . Surgeries None recorded . Imaging XR, hip + pelvis, unilater al, 2 or 3 view - 2nd PO Left THR 08/25/24 MO room 205 2024 025 [email or web address] [facility] Office, [address], [place], [address], 10/19/2024 12:06:16 XR, hip + pelvis, unilater al, 2 or 3 view - 1st PO Left THR 08/25/24 MO rm 213 pt. has a cane. 2023 024 [email or web address] [facility], [address], [place], [address], 09/23/2024 14:53:05 Medication Orders None recorded . Patient TargetsNo targets recorded. Patient InstructionsNo instructions recorded. Reason for Referral None Reported. Results Created Date Observation Date Name Description Value Unit Range Abnormal Flag Note LastModifiedBy Organization Detail LastModifiedTime 09/08/20 24 09/08/2024 XR, hip + pelvi s, unila teral , 2 or 3 view http:/ [email or web address] ?Encry pted=s hAaTro YD8dLq bEUv6g %2BXZw aYqtaq 0bqfl% 2Fg9IQ a4ajBk vP9nXo QUaueC m3YtLR FvZlgJ JJ8mAn HZtai3 4g1301 AC0Kqb nWau gKiQtr [facility] INTERFACE [facility] [address], [place], [address], 09/08/2024 13:40:23 09/08/20 24 09/08/2024 XR, hip + pelvi s, unila teral , 2 or 3 view http:/ /[email or web address] 0:7083 ?Encry pted=s hAaTro YD8dLq bEUv6g %2BXZw aYqtaq 0bqfl% 2Fg9IQ a4ajBk vP9nXo QUaueC m3YtLR FvZlgJ JJ8mAn HZtai3 5d8549 AC0Kqb [facility] gKiQtr [facility] INTERFACE [facility] [address], [place], [address], 09/08/2024 13:40:25 10/09/19 25 10/09/2024 XR, hip + pelvi s, unila teral , 2 or 3 view http:/ [email or web address] ?Encry pted=s hAaTro YD8dLq bEUv6g %2BXZw aYqtaq 0bqfl% 2Fg9IQ a4ajBk vP9nXo QUaueC m3YtLR FvZlgJ JJ8mAn HZtai3 2o8642 AC0Kqb H%2BAW aavKiQ trMwF INTERFACE [facility] [address], [place], [address], 10/09/2024 11:25:34 10/09/19 25 10/09/2024 XR, hip + pelvi s, unila teral , 2 or 3 view http:/ [email or web address] ?Encry pted=s hAaTro YD8dLq bEUv6g %2BXZw aYqtaq 0bqfl% 2Fg9IQ a4ajBk vP9nXo QUaueC m3YtLR FvZlgJ JJ8mAn HZtai3 0f7736 AC0Kqb H%2BAW aavKiQ trMwF INTERFACE [facility] [address], [place], [address], 10/09/2024 11:25:36 Result Notes None recorded. Problems Name Problem SNOMED Code Status Onset Date Resolution Date Notes Provider Name and Address Organization Details Recorded Time Pain of left hip joint 196527882038959 Active 2023 MERRY Viera'HEURSTCAIE [facility] [place] [facility] 4 11:18:04 Hip pain 09158810 Active 2024 nataliia freire [facility], [facility] 5 12:19:37 Pain of right knee joint 663356638917594 Active 2023 Deb hussein PA-C [address], [place], [address], [facility] 4 17:28:17 Problem Notes None recorded. Procedures Surgical History Date Name Laterality Status Provider Name and Address Organization Details Recorded Time 5 45871 Therapeutic Exercise (1:1) completed Lulu Gallegos PTA [address], [place], [address], [facility] 09/16/2024 20:06:18 5 50874 Therapeutic Exercise (1:1) completed Lulu Gallegos DRYER OPERATOR [address] [facility], [place], [address], [facility] 09/14/2024 13:27:57 5 57841 Therapeutic Exercise (1:1) completed Lulu Gallegos DRYER OPERATOR [address], [place], [address], [facility] 09/11/2024 11:17:10 4 91783 Therapeutic Exercise (1:1) completed Ken Jane DPT [address], [place], [address], [facility] 09/08/2024 10:14:40 4 58426: Low complexity PT Eval completed Ken Jane DPT [address] [facility], [place], [address], [facility] 09/08/2024 10:14:43 4 G8417 BMI Above Upper Parameters, F/U Documented completed Ken Jane DPT [address] [facility], [place], [address], [facility] 09/08/2024 10:15:07 4 G8427 Current Medication Documented completed Ken Jane DPT [address], [place], [address], [facility] 09/08/2024 10:15:03 4 66025 Therapeutic Exercise (1:1) completed Ken Jane DPT [address], [place], [address], [facility] 07/23/2024 14:54:21 4 66899: Low complexity PT Eval completed Ken Jane, DPT [address], [place], [address], [facility] 07/23/2024 14:54:22 4 G8420 BMI Normal, No Follow-Up Plan Required completed Ken Jnae DPT [address], [place], [address], [facility] 07/23/2024 14:55:36 4 G8427 Current Medication Documented completed Ken Jane DPT [address], [place], [address], [facility] 07/23/2024 14:55:31 4 JZHip completed Sourav Raymundo PA-C [address] [facility], [place], [address], [facility] 03/17/2024 12:22:41 Imaging Results Imaging Date Name Status LastModified by Organiz ation Details LastModified Time 09/08/2024 XR, hip + pelvis, unilateral , 2 or 3 view completed INTERFACE [facility] [address], [place], [address], 09/08/2024 13:40:23 09/08/2024 XR, hip + pelvis, unilateral , 2 or 3 view completed INTERFACE [facility] [address], [place], [address], 09/08/2024 13:40:25 10/09/2024 XR, hip + pelvis, unilateral , 2 or 3 view completed INTERFACE [facility] [address], [place], [address], 10/09/2024 11:25:34 10/09/2024 XR, hip + pelvis, unilateral , 2 or 3 view completed INTERFACE [facility] [address], [place], [address], 10/09/2024 11:25:36 Procedure Notes None recorded. Medical Equipment None Reported. Allergies No known drug allergies Medications Name Sig Start Date Stop Date Status Note LastModified by Organization Details LastModified Time prednisone 10 mg tablet active Not Available Not Available Not Available azithromyci n 250 mg tablet TAKE 2 TABLETS BY MOUTH ON DAY 1, AND THEN TAKE 1 TABLET BY MOUTH ONCE A DAY ON DAY 2 THROUGH DAY 5 active Not Available Not Available No t Available meloxicam 15 mg tablet TAKE 1 TABLET BY MOUTH ONCE DAILY 06/16 completed Not Available Not Available Not Available acetaminoph en 300 mg-codeine 30 mg tablet TAKE 1 TO 2 TABLETS BY MOUTH EVERY 6 HOURS NEEDED FOR MILD PAIN. active Not Available Not Available No t Available risperidone 3 mg tablet TAKE 2 TABLETS BY MOUTH ONCE DAILY AT BEDTIME 06/16 completed Not Available Not Available Not Available Celebrex 200 mg capsule Take 1 capsule every day by oral route. 2024 active Not Available Not Available Not Avai lable pantoprazol e 40 mg tablet,maco yed release TAKE 1 TABLET BY MOUTH EVERY DAY active Not Available Not Available No t Available Advair Diskus 250 mcg-50 mcg/dose powder for inhalation INHALE 1 PUFF BY MOUTH TWICE DAILY active Not Available Not Available No t Available zolpidem 10 mg tablet TAKE 1 TABLET BY MOUTH ONCE DAILY AT BEDTIME NEEDED 06/16 completed Not Available Not Available Not Available methylpredn isolone 4 mg tablets in a dose pack TAKE BY MOUTH DIRECTED ON INSIDE OF PACKAGE active Not Available Not Available No t Available albuterol sulfate HFA 90 mcg/actuati on aerosol inhaler INHALE 2 PUFFS BY MOUTH EVERY 4 HOURS NEEDED FOR WHEEZING OR SHORTNESS OF BREATH active Not Available Not Available No t Available oxycodone 5 mg tablet Take 1 tablet every 4 hours by oral route for 7 days. active Not Available Not Available No t Available escitalopra m 10 mg tablet TAKE 1 TABLET BY MOUTH ONCE DAILY ALONG WITH 20 MG DOSE 06/16 completed Not Available Not Available Not Available escitalopra m 20 mg tablet TAKE 1 TABLET BY MOUTH ONCE DAILY 06/16 completed Not Available Not Available Not Available Vitals Date Recorded Body height Body mass index (BMI) Body weight Provider Name and Address Organization Details Last Updated DateTime 09/08/2024 190.5 cm 28.5 kg/m2 139146.06 g Erma Camara [place] - [facility] 09/08/2024 12:57:06 Date Recorded Body height Body mass index (BMI) Body weight Provider Name and Address Organization Details Last Updated DateTime 10/09/2024 190.5 cm 28.5 kg/m2 177263.06 g PATCATHI DexterMIANSTACIE [facility] 10/09/2024 11:13:48 Social History Question Answer Notes LastModified by Organizat ion Details LastModified Time Tobacco Smoking Status Never Smoker MERRY ALMEIDASTACIE leach [facility] 03/17/2024 11:17:51 What Is Your Level Of Alcohol Consumption? Occasional Information not available 03/17/2024 How Many Times Per Week Do You Consume Alcohol? Less Than 1 Time Per Week Information not available 03/17/2024 Have You Ever Been Counseled For Unhealthy Alcohol Use? No Information not available 03/17/2024 Do You Use Any Illicit Or Recreational Drugs? No Information not available 03/17/2024 Do You Or Have You Ever Used Any Other Forms Of Tobacco Or Nicotine? No Information not available 03/17/2024 Sex: Unknown Functional Status None recorded. Mental Status None recorded. Family History Nothing Reported. Medical History Condition Response Allergies/Hayfever N Coronary Artery Disease N Anxiety/Depression N Breathing or lung disorders N Emphysema N Nerve Disorders N Thyroid Problems N COPD N Pacemaker N Anemia N Kidney/Bladder Problems N Vascular Disease N Heart Trouble N Heart Attack ([place]) N Gastrointestinal Disease N Cholesterol N Diabetes N Autoimmune disease N Bleeding Disorder N Orthotics N Arthritis N Seizures/Epilepsy N Blood Clot N AIDS/HIV N Congestive Heart Failure (CHF) N Acid Reflux (GERD) N Cancer N Stroke N Asthma N Circulation Problems N Peripheral Vascular Disease N Sleep Apnea N Hepatitis N Heart Disease N Rheumatoid Arthritis N Arrhythmia N Pulmonary Embolism N Headaches N Fibromyalgia N Hypertension N Osteoporosis N Past Encounters Encounter ID Performer Location Encounter Start Date Encounter Closed Date Diagnosis/Indication Diagnosis SNOMED-CT Code Diagnosis ICD10 Code Diagnosis Note [id number] MAIKEL Salter [address] [place] [address] 02/12/2024 13:48:35 03/04/2024 13:29:59 Pain of left knee joint 0601244030 66755 M25.562 Reviewed patients imaging and exam findings with him. 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 He does not have complaints of instabilit y. His primary issue seems to be the hip. He is difficult to keep focused and on task during interview and exam. He has most pain with ROM of the hip. He has an appointmen t for this later this month. Recommende d supportive footwear and anti-infla mmatory course. Discussed risks and benefits associated with anti-infla mmatory use. Patient should not take any other NSAID's while taking this medication . Drink plenty of water. Stop if you develop any GI upset, or signs/symp toms of GI bleed including black/bloo dy stools. Take with food. Prescribed {{meloxica m 15 mg PO daily*}} [id number] MAIKEL Alvarez [address] [place] [address] 03/17/2024 10:21:45 04/14/2024 13:25:08 Pain of left hip joint 5011400922 28374 M25.552 Osteoarthr itis of left hip joint 2082358231 62592 M16.12 [id number] MAIKEL Alvarez [address] [place] [address] 05/05/2024 14:07:42 05/27/2024 15:05:43 Osteoarthritis of left hip joint 9118834563 10243 M16.12 [id number] MD Andrew Mcbride [address] [place] [address] 06/16/2024 11:24:09 07/09/2024 10:01:29 Osteoarthritis of left hip joint 1650895712 85966 M16.12 [id number] MD [facility] [address] [place] [address] 07/22/2024 14:29:02 07/22/2024 15:39:36 Osteoarthritis of hip 359512990 M16.12 [id number] BLAISE Vaughn [address] [place] [address] 08/20/2024 09:33:24 09/15/2024 04:00:53 [id number] Dakotah Callaway MD [facility] [address] [place] [address] 09/07/2024 10:42:51 09/07/2024 11:50:09 Aftercare 566592739 Z47.1 Z96.491 [id number] Andrews Muse PA-C [facility] [address] [place] [address] 09/08/2024 12:48:01 09/23/2024 14:53:05 History of total replacement of left hip joint 3020441357 523538 Z96.357 [id number] Nadya Nevarez DPT [facility] [address] [place] [address] 09/11/2024 10:21:49 09/11/2024 10:51:02 Aftercare 324831845 Z47.1 Z96.812 [id number] JAYCOB LozaT [facility] [address] [place] [address] 09/14/2024 10:44:48 09/14/2024 11:53:06 Aftercare 266941784 Z47.1 Z96.081 [id number] Ken Jane , DPT [facility] [address] [place] [address] 09/17/2024 10:56:14 09/17/2024 12:00:52 Aftercare [id number] Z47.1 Z96.243 [id number] Dakotah Callaway MD [facility] [address] [place] [address] 10/09/2024 11:09:44 10/19/2024 12:06:16 History of total replacement of left hip joint 0695441869 147641 Z96.642 Health Concerns Section Related Observation LastModified by Organization Detai ls LastModified Time None Recorded Concern Status LastModified by Organization Details LastModified Time None Recorded Advance Directives Directive None Recorded Payers Encounter Date Sequence Insurance Name Policy Number Policy Crabtree Covered Member ID Crabtree Member ID Guarantor Name 09/08/2024 1 [place] [employer] Faheem P Don [id number] Faheem P Don 09/08/2024 2 [place] Faheem P Don [id number] Faheem P Don 09/11/2024 1 [place] Faheem P Don [id number] Faheem P Don 09/11/2024 2 [place] Faheem P Don [id number] Faheem P Don 09/14/2024 1 [place] Faheem P Don [id number] Faheem P Don 09/14/2024 2 [place] Faheem P Don [id number] Faheem P Don 09/17/2024 1 [place] Faheem P Don [id number] Faheem P Don 09/17/2024 2 [place] Faheem P Don [id number] Faheem P Don 10/09/2024 1 [place] Faheem P Don [id number] Faheem P Don 10/09/2024 2 [place] Faheem P Don [id number] Faheem P Don Notes Date Note Type Note Provider Name and Address Organization Details Recorded Time 09/08/2024 text/html I am seeing the patient today under the supervision of {{ Brothers#}} who was available but who did not see the patient. HISTORY OF PRESENT ILLNESS The patient presents today for follow-up, now two weeks status post {{Left* Right}} total hip arthroplasty. Overall progressing nicely, happy with results. No significant complaints of pain.No neurovascular changes. Patient continues with outpatient physical therapy. Utilizing Tylenol for pain relief. He is on aspirin for DVT prophylaxis. Continues with icing. He is using a cane for ambulatory support. PAST MEDICAL/SURGICAL HISTORY Reviewed today, otherwise unchanged per intake sheet REVIEW OF SYSTEMS Systemic: No fever and no chills. Cardiovascular: No chest pain or discomfort. Pulmonary: No dyspnea. PHYSICAL FINDINGS General Appearance: Well developed. n no acute distress. Musculoskeletal System: Hips: Right Hip: Hip was not tender on palpation. No pain was elicited by active motion. No pain was elicited by passive motion. Lower Leg: General/bilateral: Calves of both lower legs were not tender on palpation. Neurological: Oriented to time, place, and person. Gait And Stance: An operative sided antalgic gait was observed with assistive device. Psychiatric: Mood was appropriate to the affect. Skin: Physical examination of the hip reveals the incision to be intact, no erythema or drainage, no evidence of infection. 4/5 strength, normal sensation. Contralateral side shows no warmth, erythema, soft tissue swelling, or effusion. TESTS X-rays ordered, obtained, and reviews today at [facility], two views, reveal maintained alignment of the prosthetic components, no fracture or dislocation,excell ent interface ASSESSMENT Progressing nicely two weeks status post {{Left* Right}} total hip arthroplasty. PLAN Reviewed total hip precautions with the patient, who showed good understanding, and will continue to monitor for any evidence of infection, Follow-up in one month for re-evaluation, sooner if there is any complications. Andrews Muse PA-C [address], [place], [address], [facility] 09/08/2024 15:39:01 09/11/2024 text/html Patient reports hip is sore-difficulty sleeping. Lulu Gallegos PTA [address], [place], [address], [facility] 09/11/2024 11:20:03 09/14/2024 text/html Patient reports hip is sore-4/10. Lulu Gallegos PTA [address], [place], [address], [facility] 09/14/2024 13:29:52 09/17/2024 text/html Patient reports hip is sore-4/10. Lulu Gallegos PTA [address], [place], [address], [facility] 09/17/2024 12:13:52
--- OUTSIDE RECORDS SUMMARY | 2024-11-05 19:53 | XMS_ITS | Continuity of Care Document ---
Author Organization [facility], JOSE Valentin 2nd floor Address [address] [place] [id number] Care Team Providers Care Wood Miller Name Role Phone CHARLI COOPER Referring Provider [phone] Assessment Encounter Date Assessment Date Assessment LastModified by Organization Details LastModified Time 10/09/2024 10/09/2024 History of present illness: The [...] an issue with their total hip arthroplasty. Not available 10/11/2024 17:35:52 Plan of Treatment [...] THR 08/25/24 MO room 205 2024 025 [facility] Office, [address] [facility] [address], [place], [address], 10/19/2024 12:06:16 Medication Orders None recorded . Patient TargetsNo targets recorded. Patient InstructionsNo instructions recorded. Reason for Referral None Reported. Results Created Date Observation Date Name Description Value Unit Range Abnormal Flag Note LastModifiedBy Organization Detail LastModifiedTime 09/08/2009/08/2024 XR, hip + pelvi s, unila teral , 2 or 3 view [email or web address]:/ [email or web address] ?Encry pted=s hAaTro YD8dLq bEUv6g %2BXZw aYqtaq 0bqfl% 2Fg9IQ a4ajBk vP9nXo QUaueC m3YtLR FvZlgJ JJ8mAn HZtai3 5f2306 AC0Kqb nWBUau gKiQtr MwF INTERFACE [facility] [address], [place], [address], 09/08/2024 13:40:23 09/08/20 24 09/08/2024 XR, hip + pelvi s, unila teral , 2 or 3 view [email or web address]:/ [email or web address] ?Encry pted=s hAaTro YD8dLq bEUv6g %2BXZw aYqtaq 0bqfl% 2Fg9IQ a4ajBk vP9nXo QUaueC m3YtLR Zl [facility] 0b1887 AC0Kqb nWBUau gKiQtr MwF INTERFACE [facility] [address], [place], [address], 09/08/2024 13:40:25 10/09/19 25 10/09/2024 XR, hip + pelvi s, unila teral , 2 or 3 view [email or web address]:/ [email or web address] ?Encry pted=s hAaTro YD8dLq bEUv6g %2BXZw aYqtaq 0bqfl% 2Fg9IQ a4ajBk vP9nXo QUaueC m3YtLR FvZl JJ8mAn HZtai3 0c5615 AC0Kqb H%2BAW aavKiQ trMwF INTERFACE [facility] [address], [place], [address], 10/09/2024 11:25:34 10/09/19 25 10/09/2024 XR, hip + pelvi s, unila teral , 2 or 3 view [email or web address]:/ [email or web address] ?Encry pted=s hAaTro YD8dLq bEUv6g %2BXZw aYqtaq 0bqfl% 2Fg9IQ a4ajBk vP9nXo QUaueC m3YtLR FvZlgJ JJ8mAn HZtai3 5x7309 AC0Kqb H%2BAW aavKiQ trMwF INTERFACE [facility] [address], [place], [address], 10/09/2024 11:25:36 Result Notes None recorded. Problems Name Problem SNOMED Code Status Onset Date Resolution Date Notes Provider Name and Address Organization Details Recorded Time Pain of left hip joint 337391846879897 Active 2023 MERRY L'HEUREUX [facility], [facility] 4 11:18:04 Hip pain 52128962 Active 2024 egypt freire [facility], [facility] 5 12:19:37 Pain of right knee joint 050115171729705 Active 2023 Deb hussein PA-C [address], [place], [address], [facility] 4 17:28:17 Problem Notes None recorded. Procedures Surgical History Date Name Laterality Status Provider Name and Address Organization Details Recorded Time 5 38905 Therapeutic Exercise (1:1) completed Lulu Gallegos PTA [address], [place], [address], [facility] 09/16/2024 20:06:18 5 47035 Therapeutic Exercise (1:1) completed Lulu Gallegos PTA [address], [place], [address], [facility] 09/14/2024 13:27:57 5 05860 Therapeutic Exercise (1:1) completed Lulu Gallegos PTA [address], [place], [address], [facility] 09/11/2024 11:17:10 4 69744 Therapeutic Exercise (1:1) completed Ken Jane DPT [address], [place], [address], [facility] 09/08/2024 10:14:40 4 12376: Low complexity PT Eval completed Ken Jane DPT [address], [place], [address], [facility] 09/08/2024 10:14:43 4 G8417 BMI Above Upper Parameters, F/U Documented completed JAYCOB KeatingT [address] [facility], [place], [address], [facility] 09/08/2024 10:15:07 4 G8427 Current Medication Documented completed Ken Jane DPT [address] [facility], [place], [address], [facility] 09/08/2024 10:15:03 4 67942 Therapeutic Exercise (1:1) completed JAYCOB KeatingT [address] [facility], [place], [address], [facility] 07/23/2024 14:54:21 4 15699: Low complexity PT Eval completed JAYCOB KeatingT [address] [facility], [place], [address], [facility] 07/23/2024 14:54:22 4 G8420 BMI Normal, No Follow-Up Plan Required completed JAYCOB KeatingT [address] [facility], [place], [address], [facility] 07/23/2024 14:55:36 4 G8427 Current Medication Documented completed JAYCOB KeatingT [address] [facility], [place], [address], [facility] 07/23/2024 14:55:31 4 JZHip completed Sourav Raymundo PA-C [address] [facility], [place], [address], [facility] 03/17/2024 12:22:41 Imaging Results None recorded. Procedure Notes None recorded. Medical Equipment None [...] Updated DateTime 10/09/2024 190.5 cm 28.5 kg/m2 796058.06 g MERRY VILLELA ID - [facility] 10/09/2024 11:13:48 Social History Question Answer Notes LastModified by Organizat ion Details LastModified Time Tobacco Smoking Status Never Smoker MERRY leach [place] - [place] 03/17/2024 11:17:51 What Is Your [...] History Nothing Reported. Medical History Condition Response Coronary Artery Disease N Anxiety/Depression N Emphysema N COPD N Pacemaker N Vascular Disease N Heart Trouble N Gastrointestinal Disease N Autoimmune disease N Orthotics N Arthritis N Blood Clot N Acid Reflux (GERD) N Cancer N Stroke N Circulation Problems N Rheumatoid Arthritis N Arrhythmia N Headaches N Fibromyalgia N Allergies/Hayfever N Breathing or lung disorders N Nerve Disorders N Thyroid Problems N Kidney/Bladder Problems N Anemia N Heart Attack (MS) N Cholesterol N Diabetes N Bleeding Disorder N Seizures/Epilepsy N AIDS/HIV N Congestive Heart Failure (CHF) N Asthma N Peripheral Vascular Disease N Sleep Apnea N Hepatitis N Heart Disease N Pulmonary Embolism N Hypertension N Osteoporosis N Past Encounters Encounter ID Performer Location Encounter Start Date Encounter Closed Date Diagnosis/Indication Diagnosis SNOMED-CT Code Diagnosis ICD10 Code Diagnosis Note [id number] MAIKEL Sullivan 2nd floor [address] [place] [id number] 09/08/2024 12:48:01 09/23/2024 14:53:05 History of total replacement of left hip joint 5439419446 165645 Z96.639 [id number] JUDY Loza PT [address] [place] [id number] 09/11/2024 10:21:49 09/11/2024 10:51:02 Aftercare [id number] Z47.1 Z96.823 [id number] JUDY Lozae PT [address] [place] [id number] 09/14/2024 10:44:48 09/14/2024 11:53:06 Aftercare [id number] Z47.1 Z96.396 [id number] Ken Jane , DPT [facility] [address] [place] [id number] 09/17/2024 10:56:14 09/17/2024 12:00:52 Aftercare [id number] Z47.1 Z96.948 [id number] MD JOSE Mcbride 2nd floor [address] [place] [id number] 10/09/2024 11:09:44 10/19/2024 12:06:16 History of total replacement of left hip joint 3654634030 598829 Z96.642 Health Concerns Section Related Observation LastModified by Organization Detai ls LastModified Time None Recorded Concern Status LastModified by Organization Details LastModified Time None Recorded Payers Encounter Date Sequence Insurance Name Policy Number Policy Crabtree Covered Member ID Crabtree Member ID Guarantor Name 10/09/2024 1 [place] [employer] Faheem Ochoa [id number] Faheem Ochoa 10/09/2024 2 [place] [facility] Faheem Ochoa [id number] Faheem Ochoa
[2024-11-05 19:59] LABS: Influenza A PCR POSITIVE (Negative); Influenza B PCR NEGATIVE (Negative); Resp Syncy Virus RNA Qual PCR NEGATIVE (Negative); SARS COV2 PCR INHOUSE NEGATIVE (Negative)
[2024-11-05 20:12] VITALS: BP 134/80; PULSE 128; RESP 13; TEMP 38.1; O2SAT 96
[2024-11-05] MEDS: Acetaminophen 325 MG TABLET 975 MG PO (20:28)
[2024-11-05] MEDS: 0.9 % Sodium Chloride 1,000 ML 999 ML IV (20:28)
--- NOTE | 2024-11-05 22:06 | PC.NURSE ---
Patient ripped out his IV, demanding to go home. Wants dr to order him PO prednisone. Provider Dr. Lopez made aware.
[2024-11-05 22:12] VITALS: BP 159/88; PULSE 109; RESP 16; TEMP 36.7; O2SAT 96
[2024-11-05 22:50] VITALS: BP 159/88; PULSE 109; RESP 16; TEMP 36.7; O2SAT 96
== END 2024-11-05 22:50 | disposition home or self-care (01) ==
PROVIDERS: Physician Assistant; Emergency Provider Student in an Organized Health Care Education/Training Program
DX: J10.1 Influenza due to other identified influenza virus with other respiratory manifestations (principal); J45.901 Unspecified asthma with (acute) exacerbation; R79.89 Other specified abnormal findings of blood chemistry; R06.02 Shortness of breath; Z03.818 Encounter for observation for suspected exposure to other biological agents ruled out; Z79.899 Other long term (current) drug therapy
CPT/HCPCS: 0241U; 71045; 80053; 83880; 84484; 85025; 85610; 85730; 93005; 94640; 96374; 99285; J2919

== ENCOUNTER → 2024-11-05 18:41 | Outpatient (BNV) | payer MEDICARE, MEDICAID, SELFPAY | PROVIDERS: Emergency Provider Student in an Organized Health Care Education/Training Program; Visit Provider Internal Medicine Cardiovascular Disease | DX: R06.02 Shortness of breath (principal); R00.0 Tachycardia, unspecified; I45.10 Unspecified right bundle-branch block; I51.7 Cardiomegaly | CPT/HCPCS: 93010 ==

== ENCOUNTER → 2024-11-05 18:41 | Outpatient (BNV) | payer MEDICARE, MEDICAID, SELFPAY | PROVIDERS: Emergency Provider Student in an Organized Health Care Education/Training Program; Visit Provider Radiology Vascular & Interventional Radiology | DX: R06.02 Shortness of breath (principal); R06.2 Wheezing | CPT/HCPCS: 71045 ==

== ENCOUNTER 2025-02-03 12:39 | Emergency (ER) | payer MEDICARE, MEDICAID, SELFPAY | END 2025-02-03 15:23 | disposition left against medical advice (07) | PROVIDERS: Emergency Provider Emergency Medicine; PCP Internal Medicine | DX: R21 Rash and other nonspecific skin eruption (principal); Z53.21 Procedure and treatment not carried out due to patient leaving prior to being seen by health care provider ==